=== PATIENT | female | born 1970 | race Two or more races ===

== ENCOUNTER 2017-08-25 04:12 | Emergency (ER) | payer MEDICAID ==
[~2017-08-25] VITALS: Ht 157.5 cm; Wt 52.6 kg
[~2017-08-25 04:12] MED LIST: BACTRIM DS TAB1 EAC1 ORAL; IBUPROFEN800 MG ORAL; NITROFURANTOIN100 M2 ORAL; NKM; PEPCID20 MG ORAL; PRILOSEC OTC20 MG ORAL; RANITIDINE HCL150 MG ORAL; ZANTAC150 MG ORAL
[2017-08-25] MEDS ORDERED: Morphine Sulfate 4mg/ml Inj IVP ONE (04:30)
--- NOTE | 2017-08-25 04:32 | Emergency Room Report ---
History of Present Illness General Chief Complaint: Abdominal Pain Source: Patient Present Illness HPI This is a 46 year old female with no past medical history. She presents with epigastric pain. Onset was around 1 AM. It radiated to her back. It was gnawing pain but then intensified in the last hour. She has several episodes of vomiting. No diarrhea. No fever. Never had this problem before. Denies any urinary complaints. Pain is 9 out of 10. Allergies: Coded Allergies: No Known Allergies (Unverified , 03/14/17) Patient History Past Medical History: see triage record, old chart reviewed Past Surgical History: none Pertinent Family History: none Social History: Denies: smoking Last Menstrual Period: august 14 Now: No Immunizations: other Reviewed Nursing Documentation: PMH: Agreed, PSxH: Agreed Nursing Documentation-PMH Hx Gastrointestinal Problems: Yes - ACID REFLUX Review of Systems Eye: Denies: eye pain, blurred vision ENT: Denies: ear pain, nose congestion, throat swelling Respiratory: Denies: cough, shortness of breath Cardiovascular: Denies: chest pain, palpitations Gastrointestinal: Reports: abdominal pain, nausea, vomiting, Denies: diarrhea Musculoskeletal: Denies: back pain, joint pain Skin: Denies: rash Neurological: Denies: headache, numbness Endocrine: Denies: increased thirst, increased urine Hematologic/Lymphatic: Denies: easy bruising All Other Systems: negative except mentioned in HPI Physical Exam Vital Signs Date Time Temp Pulse Resp B/P (MAP) Pulse Ox O2 Delivery O2 Flow Rate FiO2 08/25/17 04:15 98.8 74 18 133/84 99 Room Air 98.8 vitals normal Sp02 EP Interpretation: reviewed, normal General Appearance: well appearing, no apparent distress, alert Head: normocephalic, atraumatic Eyes: bilateral eye PERRL, bilateral eye EOMI ENT: hearing grossly normal, normal pharynx Neck: full range of motion, supple, no meningismus Respiratory: chest non-tender, lungs clear, normal breath sounds Cardiovascular #1: regular rate, rhythm, no murmur Gastrointestinal: normal bowel sounds, no mass, no organomegaly, no bruit, non- distended, tenderness - Epigastric Musculoskeletal: back normal, gait/station normal, normal range of motion Neurologic: alert, oriented x3 Psychiatric: mood/affect normal Skin: warm/dry Medical Decision Making Diagnostic Impression: Primary Impression: Cholelithiasis Qualified Codes: K80.20 - Calculus of gallbladder without cholecystitis without obstruction ER Course Patient presents with abdominal pain and has gallstone and biliary colic. No evidence of an acute abdomen. No evidence of appendicitis. Her pain is resolved now. No evidence of cholecystitis or pancreatitis. Lab Results Impression labs normal CT/MRI/US Diagnostic Results CT/MRI/US Diagnostic Results : Imaging Test Ordered: CT abdomen and pelvis Impression read by radiologist. Large gallstone. Last Vital Signs Date Time Temp Pulse Resp B/P (MAP) Pulse Ox O2 Delivery O2 Flow Rate FiO2 08/25/17 04:15 98.8 74 18 133/84 99 Room Air 98.8 Status: improved Disposition: HOME, SELF-CARE Condition: Stable Scripts Hydrocodone/Acetaminophen 5-325* (HYDROCODONE/ACETAMINOPHEN 5-325*) 1 Each Tablet 1 TAB ORAL Q6H Y for For Pain, #20 TAB 0 Refills Prov: LAZARUS APPIAH M.D. 08/25/17 Additional Instructions: Follow-up with your doctor in a week. You may need referral to see a general surgeon. Return if symptoms worsen. LAZARUS APPIAH M.D. Aug 25, 2017 04:32
[2017-08-25 04:54] LABS: APPEARANCE,URINE CLEAR; BILIRUBIN, URINE NEGATIVE (NEGATIVE); COLOR,URINE PALE YELLOW; GLUCOSE, URINE (UA) NEGATIVE (NEGATIVE); KETONES,URINE NEGATIVE (NEGATIVE); LEUKOCYTE ESTERASE ,URINE NEGATIVE (NEGATIVE); NITRITE,URINE NEGATIVE (NEGATIVE); PH,URINE 5 (4.5-8.0); PROTEIN,URINE NEGATIVE (NEGATIVE); UROBILINOGEN,URINE NORMAL MG/DL (0.0-1.0)
[2017-08-25 04:56] LABS: BASOPHILS % (AUTO) 0.5 % (0.0-2.0); EOSINOPHILS % (AUTO) 1.2 % (0.0-3.0); HEMATOCRIT 42.5 % (37.0-47.0); HEMOGLOBIN 14.6 G/DL (12.0-16.0); LYMPHOCYTES % (AUTO) 17.1 % (20.0-45.0); MEAN CORPUSCULAR VOLUME 87 FL (80-99); NEUTROPHILS % (AUTO) 73.2 % (45.0-75.0); PLATELET COUNT 243 K/UL (150-450); RED BLOOD COUNT 4.86 M/UL (4.20-5.40); RED CELL DISTRIBUTION WIDTH 11.8 % (11.6-14.8); WHITE BLOOD COUNT 9.3 K/UL (4.8-10.8)
[2017-08-25 05:11] LABS: ANION GAP 9 mmol/L (5-15); BLOOD UREA NITROGEN 10 mg/dL (7-18); CARBON DIOXIDE 25 MMOL/L (21-32); CHLORIDE 104 MMOL/L (98-107); CREATININE 0.9 MG/DL (0.55-1.30); POTASSIUM 3.8 MMOL/L (3.5-5.1); SODIUM 138 MMOL/L (136-145)
[2017-08-25 05:15] LABS: ALANINE AMINOTRANSFERASE 30 U/L (12-78); ALBUMIN 3.4 G/DL (3.4-5.0); ALBUMIN/GLOBULIN RATIO 0.9 (1.0-2.7); ALKALINE PHOSPHATASE 73 U/L (46-116); ASPARTATE AMINO TRANSFERASE 13 U/L (15-37); BILIRUBIN,TOTAL 0.4 MG/DL (0.2-1.0)
[2017-08-25] MEDS ORDERED: HYDROCODON-ACE1 EA15 ORAL (05:24)
[2017-08-25 06:20] VITALS: BP 130/80
--- NOTE | 2017-08-25 10:05 | Diagnostic Imaging Report ---
Indication: Abdominal pain and acid reflux since 1:00 AM Technique: Spiral acquisitions obtained through the abdomen and pelvis. No oral contrast utilized, per emergency room physician request No IV contrast utilized, per referring physician request.. Multiplanar reconstructions were generated. Total dose length product 890.38 mGycm. CTDIvol(s) 16.58 mGy. Dose reduction achieved using automated exposure control Comparison: None Findings: The appendix is normal. There are scattered colonic diverticula. No evidence of diverticulitis. No small bowel distention. No free or loculated intraperitoneal air or fluid. Tiny fat-containing umbilical hernia is incidentally noted. Distal esophagus, stomach, duodenum are unremarkable. Lack of IV contrast limits assessment of the solid organs. The the gallbladder contains a gallstone. The liver, bile ducts, pancreas, spleen, adrenals, kidneys are unremarkable. There is an accessory splenule. No retroperitoneal or mesenteric mass or adenopathy. No pelvic mass or adenopathy. The bones are unremarkable. The lung bases demonstrate bilateral groundglass opacities. Impression: Cholelithiasis. Consider sonography for better characterization No acute process otherwise Colonic diverticulosis. No evidence of diverticulitis Bilateral basilar pulmonary parenchymal groundglass opacities, nonspecific, could indicate pulmonary edema, compressive atelectasis, COPD changes, among other possibilities This agrees with the preliminary interpretation provided overnight by [facility] teleradiology service. The CT scanner at [facility] is accredited by the [employer] and the scans are performed using protocols designed to limit radiation exposure to as low as reasonably achievable to attain images of sufficient resolution adequate for diagnostic evaluation.
== END 2017-08-25 06:20 | disposition home or self-care (01) ==
LOC: EMR 04:38
DX: K80.20 Calculus of gallbladder without cholecystitis without obstruction (principal); K57.30 Diverticulosis of large intestine without perforation or abscess without bleeding
CPT/HCPCS: 36415; 74176; 80053; 81003; 81025; 83690; 85025; 96361; 96374; 96375; 99284; J2270; J2405

== ENCOUNTER 2018-06-22 16:11 | Inpatient (IN) | payer MEDICAID ==
[~2018-06-22] VITALS: Ht 157.5 cm; Wt 70.8 kg
[~2018-06-22 16:11] MED LIST changes: +HYDROCODON-ACE1 EA15 ORAL
[2018-06-22] MEDS ORDERED: ZOFRAN4 M1 ORAL (16:19)
--- NOTE | 2018-06-22 16:30 | NUR ---
ED Nurse Note: pt came in from home c/o abdominal pain 03/28. pt has a previous history of GERD. pt did not take anything to alleviate pain. pt has had n/v since monday.
[2018-06-22] MEDS ORDERED: Dicyclomine HCl 10mg/5ml oral soln ORAL ONE (16:45)
[2018-06-22] MEDS ORDERED: Isovue-300 100ml vial INJ PRN (16:45)
[2018-06-22] MEDS ORDERED: Mylanta II UD 30ml ORAL ONE (16:45)
[2018-06-22] MEDS ORDERED: Morphine Sulfate 4mg/ml Inj (IV/IM USE ONLY) IVP ONE ×2 (16:45→19:30)
[2018-06-22] MEDS ORDERED: Lidocaine 2% Visc 15ml soln ORAL ONE (16:45)
[2018-06-22 17:11] LABS: HEMATOCRIT 40.8 % (37.0-47.0); HEMOGLOBIN 13.8 G/DL (12.0-16.0); MEAN CORPUSCULAR VOLUME 90 FL (80-99); PLATELET COUNT 233 K/UL (150-450); RED BLOOD COUNT 4.55 M/UL (4.20-5.40); RED CELL DISTRIBUTION WIDTH 11.7 % (11.6-14.8); WHITE BLOOD COUNT 19.3 K/UL (4.8-10.8)
[2018-06-22 17:17] LABS: ANION GAP 9 mmol/L (5-15); BLOOD UREA NITROGEN 7 mg/dL (7-18); CALCIUM 9.1 MG/DL (8.5-10.1); CARBON DIOXIDE 29 MMOL/L (21-32); CHLORIDE 101 MMOL/L (98-107); CREATININE 0.8 MG/DL (0.55-1.30); POTASSIUM 3.3 MMOL/L (3.5-5.1); SODIUM 139 MMOL/L (136-145)
[2018-06-22 17:30] LABS: ALANINE AMINOTRANSFERASE 837 U/L (12-78); ALBUMIN 3.5 G/DL (3.4-5.0); ALKALINE PHOSPHATASE 127 U/L (46-116); ASPARTATE AMINO TRANSFERASE 265 U/L (15-37); BILIRUBIN,TOTAL 1.1 MG/DL (0.2-1.0)
[2018-06-22 17:32] LABS: BILIRUBIN,DIRECT 0.3 MG/DL (0.0-0.3)
[2018-06-22 18:00] VITALS: BP 154/92
--- NOTE | 2018-06-22 18:01 | NUR ---
ED Nurse Note: Patient reports decreased abdominal pain, 8/10 and it is tolerable at this time.
[2018-06-22] MEDS ORDERED: NEXIUM40 MG ORAL (18:15)
[2018-06-22 18:34] LABS: APPEARANCE,URINE CLEAR; BILIRUBIN, URINE NEGATIVE (NEGATIVE); COLOR,URINE PALE YELLOW; GLUCOSE, URINE (UA) NEGATIVE (NEGATIVE); KETONES,URINE NEGATIVE (NEGATIVE); LEUKOCYTE ESTERASE ,URINE NEGATIVE (NEGATIVE); NITRITE,URINE NEGATIVE (NEGATIVE); PH,URINE 7 (4.5-8.0); PROTEIN,URINE NEGATIVE (NEGATIVE); UROBILINOGEN,URINE NORMAL MG/DL (0.0-1.0)
--- NOTE | 2018-06-22 18:35 | NUR ---
ED Nurse Note: (alan) at bedside [phone]
[2018-06-22 18:51] VITALS: BP 163/84
--- NOTE | 2018-06-22 19:10 | Emergency Room Report ---
History of Present Illness General Chief Complaint: Abdominal Pain Source: Patient Present Illness HPI 47-year-old female presents ED for evaluation. Complaining of abdominal pain 1 day. Pain is epigastric, sharp, 9 out of 10, nonradiating. With nausea and vomiting. Denies any diarrhea. Denies fevers or chills. History of gallstones. History of acid reflux. No other aggravating relieving factors. Denies any other associated symptoms Allergies: Coded Allergies: No Known Allergies (Unverified , 03/14/17) Patient History Past Medical History: GERD Past Surgical History: none Pertinent Family History: none Social History: Denies: smoking, alcohol use, drug use Now: No Immunizations: UTD Reviewed Nursing Documentation: PMH: Agreed; PSxH: Agreed Nursing Documentation-PMH Hx Gastrointestinal Problems: Yes - ACID REFLUX, GERD Review of Systems All Other Systems: negative except mentioned in HPI Physical Exam Vital Signs Date Time Temp Pulse Resp B/P (MAP) Pulse Ox O2 Delivery O2 Flow Rate FiO2 06/22/18 16:15 98.8 80 18 152/69 96 Room Air Sp02 EP Interpretation: reviewed, normal General Appearance: no apparent distress, alert, GCS 15, non-toxic Head: normocephalic, atraumatic Eyes: bilateral eye normal inspection, bilateral eye PERRL ENT: hearing grossly normal, normal pharynx, no angioedema, normal voice Neck: full range of motion, supple/symm/no masses Respiratory: chest non-tender, lungs clear, normal breath sounds, speaking full sentences Cardiovascular #1: regular rate, rhythm, no edema Cardiovascular #2: 2+ carotid (R), 2+ carotid (L), 2+ radial (R), 2+ radial (L) , 2+ dorsalis pedis (R), 2+ dorsalis pedis (L) Gastrointestinal: normal bowel sounds, soft, non-distended, no guarding, no rebound, tenderness Rectal: deferred Genitourinary: normal inspection, no CVA tenderness Musculoskeletal: back normal, gait/station normal, normal range of motion, non- tender Neurologic: alert, oriented x3, responsive, motor strength/tone normal, sensory intact, speech normal Psychiatric: judgement/insight normal, memory normal, mood/affect normal, no suicidal/homicidal ideation Reflexes: 3+ bicep (R), 3+ bicep (L), 3+ tricep (R), 3+ tricep (L), 3+ knee (R) , 3+ knee (L) Skin: normal color, no rash, warm/dry, well hydrated Lymphatic: no adenopathy Medical Decision Making Diagnostic Impression: Primary Impression: Acute gallstone pancreatitis ER Course Hospital Course 47-year-old F presents to ED with epigastric pain Differential diagnoses include: Appendicitis, cholecystitis, small bowel obstruction Clinical course Patient placed on stretcher. redrawer. After initial history and physical I ordered labs, IV fluids, UA, pain medication and CT Labs - leukocytosis noted, Hb/Hct stable. electrolytes ok. LFTs elevated, lipase elevated CT A/P - cholecystitis with pancreatitis Clinically concerning for gallstone pancreatitis Antibiotics given. Case discussed with Dr. Archuleta and he agreed to consult. Case discussed with Dr. Joseph and he agreed to accept the patient to his service for further care and support I feel this is a highly complex case requiring extensive working including EKG/ Rhythm strip, Xray/CT/US, Blood/urine lab work, repeat exams while in ED, and administration of strong opiates/narcotics for pain control, admission to hospital or close patient follow up. Diagnosis - acute gallstone pancreatitis Patient admitted to hospital in serious condition Labs Test 06/22/18 16:47 06/22/18 17:50 White Blood Count 19.3 K/UL (4.8-10.8) Red Blood Count 4.55 M/UL (4.20-5.40) Hemoglobin 13.8 G/DL (12.0-16.0) Hematocrit 40.8 % (37.0-47.0) Mean Corpuscular Volume 90 FL (80-99) Mean Corpuscular Hemoglobin 30.3 PG (27.0-31.0) Mean Corpuscular Hemoglobin Concent 33.8 G/DL (32.0-36.0) Red Cell Distribution Width 11.7 % (11.6-14.8) Platelet Count 233 K/UL (150-450) Mean Platelet Volume 6.5 FL (6.5-10.1) Neutrophils (%) (Auto) % (45.0-75.0) Lymphocytes (%) (Auto) % (20.0-45.0) Monocytes (%) (Auto) % (1.0-10.0) Eosinophils (%) (Auto) % (0.0-3.0) Basophils (%) (Auto) % (0.0-2.0) Differential Total Cells Counted 100 Neutrophils % (Manual) 89 % (45-75) Lymphocytes % (Manual) 3 % (20-45) Monocytes % (Manual) 8 % (1-10) Eosinophils % (Manual) 0 % (0-3) Basophils % (Manual) 0 % (0-2) Band Neutrophils 0 % (0-8) Platelet Estimate Adequate Platelet Morphology Normal Red Blood Cell Morphology Normal Urine Color Pale yellow Urine Appearance Clear Urine pH 7 (4.5-8.0) Urine Specific [place] 1.005 (1.005-1.035) Urine Protein Negative (NEGATIVE) Urine Glucose (UA) Negative (NEGATIVE) Urine Ketones Negative (NEGATIVE) Urine Blood Negative (NEGATIVE) Urine Nitrite Negative (NEGATIVE) Urine Bilirubin Negative (NEGATIVE) Urine Urobilinogen Normal MG/DL (0.0-1.0) Urine Leukocyte Esterase Negative (NEGATIVE) Sodium Level 139 MMOL/L (136-145) Potassium Level 3.3 MMOL/L (3.5-5.1) Chloride Level 101 MMOL/L (98-107) Carbon Dioxide Level 29 MMOL/L (21-32) Anion Gap 9 mmol/L (5-15) Blood Urea Nitrogen 7 mg/dL (7-18) Creatinine 0.8 MG/DL (0.55-1.30) Estimat Glomerular Filtration Rate > 60 mL/min (>60) Glucose Level 130 MG/DL (74-106) Calcium Level 9.1 MG/DL (8.5-10.1) Total Bilirubin 1.1 MG/DL (0.2-1.0) Direct Bilirubin 0.3 MG/DL (0.0-0.3) Aspartate Amino Transf (AST/SGOT) 265 U/L (15-37) Alanine Aminotransferase (ALT/SGPT) 837 U/L (12-78) Alkaline Phosphatase 127 U/L (46-116) Total Protein 7.1 G/DL (6.4-8.2) Albumin 3.5 G/DL (3.4-5.0) Globulin 3.6 g/dL Albumin/Globulin Ratio 1.0 (1.0-2.7) Lipase 957 U/L (73-393) Human Chorionic Gonadotropin, Qual Negative (NEGATIVE) Urine HCG, Qualitative Negative (NEGATIVE) CT/MRI/US Diagnostic Results CT/MRI/US Diagnostic Results : Imaging Test Ordered: CT A/P Impression 1. Cholelithiasis and probably mild gallbladder wall thickening. Early acute cholecystitis can be considered in the proper clinical setting. 2. Mild pancreatitis. Possibly pseudocyst or lesion near the pancreatic head measuring 16 mm. Last Vital Signs Date Time Temp Pulse Resp B/P (MAP) Pulse Ox O2 Delivery O2 Flow Rate FiO2 06/22/18 18:51 80 20 163/84 100 Room Air 06/22/18 18:00 99.2 Status: improved Disposition: ADMITTED INPATIENT Condition: Serious Referrals: NON PHYSICIAN (PCP) Alvarez Aviles MD Jun 22, 2018 19:10
--- NOTE | 2018-06-22 19:20 | NUR ---
HAND-OFF: Report given to PAT Rodriguez.
[2018-06-22] MEDS ORDERED: Piperacillin/Tazobactam 3.375 GM in D5W 110 ML IVPB ONE (19:45)
--- NOTE | 2018-06-22 19:50 | NUR ---
ED Nurse Note: ermd with new order of iv sozyn and carried out
--- NOTE | 2018-06-22 20:00 | NUR ---
ED Nurse Note: pt was admitted in the hospital. tranfered to ms 312. via gurjaelyn with iv flowing @27.5ml/ hour with cardiovascular sonographer. report given to kristen robison
--- NOTE | 2018-06-22 20:00 | NUR ---
NURSE NOTES: Pt transferred to RM 312-2 from ER, received report from Jennifer RN, Left AC 20g IV running Zosyn @27.5ml/hr. Pt awake, alert oriented X 4, bed is now in lowest position, pt able to ambulate with steady gait, call light within reach, belongings list is in chart, no signs of pain or distress at the moment.
--- NOTE | 2018-06-22 20:40 | NUR ---
NURSE NOTES: Called Dr. Joseph and received medication orders and I put the orders in the system.
[2018-06-22] MEDS ORDERED: Acetaminophen 650 MG SUPP RECTAL PRN (21:30)
[2018-06-22] MEDS ORDERED: Mylanta II UD 30ml ORAL PRN (21:30)
[2018-06-22] MEDS ORDERED: Morphine Sulfate 2mg/ml Inj IVP PRN ×2 (21:30)
--- NOTE | 2018-06-22 22:34 | Infectious Diseases Prog Note ---
Assessment/Plan Problems: (1) Acute gallstone pancreatitis Assessment & Plan: due to passing a stone, continue hydration with supportive care , monitor lipase, GI eval, MRCP (2) Abdominal pain Assessment & Plan: due to the above, continue pain management as per primary (3) Nausea & vomiting Assessment & Plan: continue supportive care and nausea meds (4) Cholecystitis, acute Assessment & Plan: continue zosyn empiric covergae , and monitor LFT, cholecystectomy for source control once pancreatitis is better Subjective Allergies: Coded Allergies: No Known Allergies (Unverified , 03/14/17) Objective Vital Signs Last 24 Hour Vital Signs Date Time Temp Pulse Resp B/P (MAP) Pulse Ox O2 Delivery O2 Flow Rate FiO2 06/22/18 20:00 98.0 86 20 127/65 100 Room Air 06/22/18 18:51 80 20 163/84 100 Room Air 06/22/18 18:00 99.2 78 20 154/92 100 Room Air 06/22/18 17:31 99.2 06/22/18 16:30 80 20 Room Air 06/22/18 16:15 98.8 80 18 152/69 96 Room Air Height (Feet): 5 Height (Inches): 2.00 Weight (Pounds): 156 Laboratory Tests Test 06/22/18 16:47 06/22/18 17:50 White Blood Count 19.3 K/UL (4.8-10.8) H Red Blood Count 4.55 M/UL (4.20-5.40) Hemoglobin 13.8 G/DL (12.0-16.0) Hematocrit 40.8 % (37.0-47.0) Mean Corpuscular Volume 90 FL (80-99) Mean Corpuscular Hemoglobin 30.3 PG (27.0-31.0) Mean Corpuscular Hemoglobin Concent 33.8 G/DL (32.0-36.0) Red Cell Distribution Width 11.7 % (11.6-14.8) Platelet Count 233 K/UL (150-450) Mean Platelet Volume 6.5 FL (6.5-10.1) Neutrophils (%) (Auto) % (45.0-75.0) Lymphocytes (%) (Auto) % (20.0-45.0) Monocytes (%) (Auto) % (1.0-10.0) Eosinophils (%) (Auto) % (0.0-3.0) Basophils (%) (Auto) % (0.0-2.0) Differential Total Cells Counted 100 Neutrophils % (Manual) 89 % (45-75) H Lymphocytes % (Manual) 3 % (20-45) L Monocytes % (Manual) 8 % (1-10) Eosinophils % (Manual) 0 % (0-3) Basophils % (Manual) 0 % (0-2) Band Neutrophils 0 % (0-8) Platelet Estimate Adequate Platelet Morphology Normal Red Blood Cell Morphology Normal Urine Color Pale yellow Urine Appearance Clear Urine pH 7 (4.5-8.0) Urine Specific [place] 1.005 (1.005-1.035) Urine Protein Negative (NEGATIVE) Urine Glucose (UA) Negative (NEGATIVE) Urine Ketones Negative (NEGATIVE) Urine Blood Negative (NEGATIVE) Urine Nitrite Negative (NEGATIVE) Urine Bilirubin Negative (NEGATIVE) Urine Urobilinogen Normal MG/DL (0.0-1.0) Urine Leukocyte Esterase Negative (NEGATIVE) Sodium Level 139 MMOL/L (136-145) Potassium Level 3.3 MMOL/L (3.5-5.1) L Chloride Level 101 MMOL/L (98-107) Carbon Dioxide Level 29 MMOL/L (21-32) Anion Gap 9 mmol/L (5-15) Blood Urea Nitrogen 7 mg/dL (7-18) Creatinine 0.8 MG/DL (0.55-1.30) Estimat Glomerular Filtration Rate > 60 mL/min (>60) Glucose Level 130 MG/DL (74-106) H Calcium Level 9.1 MG/DL (8.5-10.1) Total Bilirubin 1.1 MG/DL (0.2-1.0) H Direct Bilirubin 0.3 MG/DL (0.0-0.3) Aspartate Amino Transf (AST/SGOT) 265 U/L (15-37) H Alanine Aminotransferase (ALT/SGPT) 837 U/L (12-78) H Alkaline Phosphatase 127 U/L (46-116) H Total Protein 7.1 G/DL (6.4-8.2) Albumin 3.5 G/DL (3.4-5.0) Globulin 3.6 g/dL Albumin/Globulin Ratio 1.0 (1.0-2.7) Lipase 957 U/L (73-393) H Human Chorionic Gonadotropin, Qual Negative (NEGATIVE) Urine HCG, Qualitative Negative (NEGATIVE) Current Medications Medications (Trade) Dose Ordered Sig/Manuel Route PRN Reason Start Time Stop Time Status Last Admin Dose Admin Acetaminophen (Tylenol) 650 mg Q4H PRN RECTAL fever 06/22/18 21:30 07/22/18 21:29 Acetaminophen/ Hydrocodone Bitart ([place] 5/325) 1 tab Q6H PRN ORAL For Pain 06/22/18 21:45 06/29/18 21:44 UNV Al Hydroxide/Mg Hydroxide (Mylanta II) 30 ml Q6H PRN ORAL dyspepsia 06/22/18 21:30 07/22/18 21:29 Dextrose (Dextrose 50%) 25 ml Q30M PRN IV Hypoglycemia 06/22/18 21:30 07/22/18 21:29 Dextrose (Dextrose 50%) 50 ml Q30M PRN IV Hypoglycemia 06/22/18 21:30 07/22/18 21:29 Diphenhydramine HCl (Benadryl) 25 mg Q6H PRN ORAL Itching/Pruritis 06/22/18 21:30 07/22/18 21:29 Famotidine (Pepcid I.v.) 20 mg Q12HR IVP 06/23/18 09:00 07/23/18 08:59 UNV Famotidine (Pepcid) 20 mg BID ORAL 06/23/18 09:00 07/23/18 08:59 UNV Heparin Sodium (Porcine) (Heparin 5000 units/ml) 5,000 units EVERY 12 HOURS SUBQ 06/22/18 22:30 07/22/18 22:29 Iopamidol (Isovue-300 100ml) 100 ml NOW PRN INJ Radiology Procedure 06/22/18 16:45 Morphine Sulfate (Morphine Sulfate) 1 mg Q4H PRN IVP For Pain 06/22/18 21:30 06/29/18 21:29 Morphine Sulfate (Morphine Sulfate) 2 mg Q4H PRN IVP Moderate Pain (Pain Scale 4-6) 06/22/18 21:30 06/29/18 21:29 Ondansetron HCl (Zofran) 4 mg Q6H PRN IVP Nausea & Vomiting 06/22/18 21:30 07/22/18 21:29 Ondansetron HCl (Zofran) 4 mg Q6H PRN ORAL Nausea & Vomiting 06/22/18 21:45 07/22/18 21:44 UNV Piperacillin Sod/ Tazobactam Sod 3.375 gm/Dextrose 110 ml @ 27.5 mls/hr ONCE ONCE IVPB 06/22/18 19:45 06/22/18 23:44 06/22/18 19:45 Piperacillin Sod/ Tazobactam Sod 3.375 gm/Sodium Chloride 110 ml @ 27.5 mls/hr EVERY 8 HOURS IVPB 06/22/18 22:00 06/27/18 21:59 UNV Sodium Chloride 1,000 ml @ 100 mls/hr Q10H IVLG 06/22/18 22:18 07/22/18 22:17 Ralph Barbour M.D. Jun 22, 2018 22:34
[2018-06-22] MEDS ORDERED: Morphine Sulfate 4mg/ml Inj (IV/IM USE ONLY) IVP PRN ×2 (22:45)
[2018-06-23] VITALS: BP 143/84
[2018-06-23] MEDS: Heparin 5000 units/ml inj SUBQ SCH ×3 (00:27→20:30)
[2018-06-23 04:00] VITALS: BP 135/95
[2018-06-23] MEDS: Piperacillin/Tazobactam 3.375 GM in NS 110 ML IVPB SCH ×3 (04:22→20:29)
[2018-06-23] MEDS: Morphine Sulfate 4mg/ml Inj (IV/IM USE ONLY) IVP PRN ×3 (06:56→20:38)
[2018-06-23 07:50] LABS: HEMATOCRIT 36.2 % (37.0-47.0); HEMOGLOBIN 12.3 G/DL (12.0-16.0); MEAN CORPUSCULAR VOLUME 89 FL (80-99); PLATELET COUNT 214 K/UL (150-450); RED BLOOD COUNT 4.05 M/UL (4.20-5.40); WHITE BLOOD COUNT 19.4 K/UL (4.8-10.8)
[2018-06-23 08:00] VITALS: BP 150/91
--- NOTE | 2018-06-23 08:00 | NUR ---
NURSE NOTES: Received report from Marlen STEWART, pt a/a/o x4 laying in bed with no signs of distress or other issues at this time. IV on the left AC gauge #20 running NS@100ml, NPO except ice chips and meds. pt is able to ambulate around the room with steady gait. call light within reach, bed in lowest position, side rales up x2. family at bedside. I will f/u as needed.
[2018-06-23 08:03] LABS: INR 1.1 (0.9-1.1)
[2018-06-23 08:31] LABS: ALANINE AMINOTRANSFERASE 553 U/L (12-78); ALBUMIN 2.9 G/DL (3.4-5.0); ALBUMIN/GLOBULIN RATIO 0.8 (1.0-2.7); ALKALINE PHOSPHATASE 100 U/L (46-116); AMYLASE 78 U/L (25-115); ANION GAP 8 mmol/L (5-15); ASPARTATE AMINO TRANSFERASE 99 U/L (15-37); BILIRUBIN,TOTAL 1.1 MG/DL (0.2-1.0); BLOOD UREA NITROGEN 9 mg/dL (7-18); CALCIUM 8.1 MG/DL (8.5-10.1); CARBON DIOXIDE 27 MMOL/L (21-32); CHLORIDE 104 MMOL/L (98-107); CREATININE 0.7 MG/DL (0.55-1.30); POTASSIUM 3.2 MMOL/L (3.5-5.1); SODIUM 139 MMOL/L (136-145)
[2018-06-23 08:34] LABS: BILIRUBIN,DIRECT 0.3 MG/DL (0.0-0.3)
--- NOTE | 2018-06-23 09:29 | Consultation ---
History of Present Illness General Date patient seen: Jun 23, 2018 Chief Complaint: Abdominal Pain Present Illness HPI 47 year old female with known history of cholelithiasis presented to ED with complaints of worsening abdominal pain. States first began to have pain 4 days prior to admission. Pain epigastric/RUQ sharp cramping pain with radiation to back. pain associate with nausea and non bloody emesis. as pain did not improve she came to ED for evaluation. In ED noted to have elevation in lft's, lipase, and leukocytosis. surgery called to evaluate for gallstone pancreatitis. patient seen, chart reviewed, patient examined. states currently n/v improved. pain improved with pain meds. Allergies: Coded Allergies: No Known Allergies (Unverified , 03/14/17) Medication History Scheduled Esomeprazole Magnesium (Nexium), 40 MG ORAL DAILY, (Reported) Ranitidine Hcl* (Zantac*), 150 MG ORAL TWICE A DAY Scheduled PRN Hydrocodone/Acetaminophen 5-325* (Hydrocodone/Acetaminophen 5-325*), 1 TAB ORAL Q6H PRN for For Pain Ondansetron (Zofran), 4 MG ORAL Q6H PRN for Nausea & Vomiting, (Reported) Discontinued Medications Famotidine (Pepcid), 20 MG ORAL DAILY Discontinued Reason: discontinued med Ibuprofen* (Motrin*), 800 MG ORAL THREE TIMES A DAY Discontinued Reason: Therapy completed Nitrofurantoin Monohyd/M-Cryst* (Macrobid 100 Mg*), 100 MG ORAL EVERY 12 HOURS Discontinued Reason: Therapy completed No Known Medications* (NKM - No Known Medications*), 0 ., (Reported) Discontinued Reason: Therapy completed Omeprazole Magnesium (Prilosec Otc), 20 MG ORAL DAILY, (Reported) Discontinued Reason: MD discontinued med Trimethoprim/Sulfamethoxazole 160/800* (Bactrim Ds Tablet*), 1 TAB ORAL Q12H Discontinued Reason: Pt stopped taking med Patient History History Provided By: Patient, Medical Record, PMD Healthcare decision maker Resuscitation status Full Code Advanced Directive on File Past Medical/Surgical History Past Medical/Surgical History: (1) Local reaction to insect sting (2) Insect bite (3) Local reaction to insect sting (4) Edema (5) Gastritis (6) Acute gallstone pancreatitis (7) Abdominal pain (8) Nausea & vomiting (9) Cholecystitis, acute Review of Systems Constitutional: Denies: no symptoms, see HPI, chills, sweats, fever, malaise, weakness, other Eye: Denies: no symptoms, see HPI, eye pain, blurred vision, tearing, double vision, nose pain, nose congestion, acuity changes, discharge, other ENT: Denies: no symptoms, see HPI, ear pain, ear discharge, nose pain, nose congestion, throat pain, throat swelling, mouth pain, hearing loss, nasal discharge, other Respiratory: Denies: no symptoms, see HPI, cough, orthopnea, shortness of breath, stridor, wheezing, GALVEZ, sputum, other Cardiovascular: Denies: no symptoms, see HPI, chest pain, edema, palpitations, syncope, PND, other Gastrointestinal: Reports: abdominal pain, nausea, vomiting Genitourinary: Denies: no symptoms, see HPI, discharge, dysuria, frequency, hematuria, pain, retention, incontinence, urgency, vag bleed/dc, other Musculoskeletal: Denies: no symptoms, see HPI, back pain, gout, joint pain, joint swelling, muscle pain, muscle stiffness, other Skin: Denies: no symptoms, see HPI, rash, change in color, change in hair/nails , dryness, lesions, other Psychiatric: Denies: no symptoms, see HPI, prior hx, anxiety, depressed feelings, emotional problems, SI, HI, hallucinations, other Neurological: Denies: no symptoms, see HPI, headache, numbness, paresthesia, seizure, tingling, tremors, focal weakness, syncope, dizziness, other Endocrine: Denies: no symptoms, see HPI, excessive sweating, flushing, intolerance to temperature, increased thirst, increased urine, unexplained weight loss, other Hematologic/Lymphatic: Denies: no symptoms, see HPI, anemia, blood clots, easy bleeding, easy bruising, swollen glands, diathesis, other Physical Exam General Appearance: no apparent distress, alert Lines, tubes and drains: peripheral HEENT: mucous membranes moist Neck: normal inspection Respiratory/Chest: normal breath sounds, no respiratory distress, no accessory muscle use Cardiovascular/Chest: regular rhythm Abdomen: normal bowel sounds, soft, no organomegaly, no mass, distended, tender Extremities: normal inspection, no calf tenderness Skin Exam: warm/dry Neurologic: alert, oriented x 3 Last 24 Hour Vital Signs Date Time Temp Pulse Resp B/P (MAP) Pulse Ox O2 Delivery O2 Flow Rate FiO2 06/23/18 07:26 99.5 06/23/18 04:00 99.5 78 18 135/95 (108) 96 06/23/18 00:00 98.4 84 18 143/84 (103) 97 06/22/18 22:23 Room Air 06/22/18 20:00 98.0 86 20 127/65 100 Room Air 06/22/18 18:51 80 20 163/84 100 Room Air 06/22/18 18:00 99.2 78 20 154/92 100 Room Air 06/22/18 17:31 99.2 06/22/18 16:30 80 20 Room Air 06/22/18 16:15 98.8 80 18 152/69 96 Room Air Intake and Output 06/22/18 06/23/18 19:00 07:00 Intake Total 900 ml 455.0 ml Balance 900 ml 455.0 ml Intake IV Total 900 ml 455.0 ml # Voids 2 3 Laboratory Tests Test 06/22/18 16:47 06/22/18 17:50 06/23/18 07:16 White Blood Count 19.3 K/UL (4.8-10.8) H 19.4 K/UL (4.8-10.8) H Red Blood Count 4.55 M/UL (4.20-5.40) 4.05 M/UL (4.20-5.40) L Hemoglobin 13.8 G/DL (12.0-16.0) 12.3 G/DL (12.0-16.0) Hematocrit 40.8 % (37.0-47.0) 36.2 % (37.0-47.0) L Mean Corpuscular Volume 90 FL (80-99) 89 FL (80-99) Mean Corpuscular Hemoglobin 30.3 PG (27.0-31.0) 30.5 PG (27.0-31.0) Mean Corpuscular Hemoglobin Concent 33.8 G/DL (32.0-36.0) 34.1 G/DL (32.0-36.0) Red Cell Distribution Width 11.7 % (11.6-14.8) 12.0 % (11.6-14.8) Platelet Count 233 K/UL (150-450) 214 K/UL (150-450) Mean Platelet Volume 6.5 FL (6.5-10.1) 6.3 FL (6.5-10.1) L Neutrophils (%) (Auto) % (45.0-75.0) % (45.0-75.0) Lymphocytes (%) (Auto) % (20.0-45.0) % (20.0-45.0) Monocytes (%) (Auto) % (1.0-10.0) % (1.0-10.0) Eosinophils (%) (Auto) % (0.0-3.0) % (0.0-3.0) Basophils (%) (Auto) % (0.0-2.0) % (0.0-2.0) Differential Total Cells Counted 100 Neutrophils % (Manual) 89 % (45-75) H Pending Lymphocytes % (Manual) 3 % (20-45) L Pending Monocytes % (Manual) 8 % (1-10) Eosinophils % (Manual) 0 % (0-3) Basophils % (Manual) 0 % (0-2) Band Neutrophils 0 % (0-8) Platelet Estimate Adequate Pending Platelet Morphology Normal Pending Red Blood Cell Morphology Normal Urine Color Pale yellow Urine Appearance Clear Urine pH 7 (4.5-8.0) Urine Specific [place] 1.005 (1.005-1.035) Urine Protein Negative (NEGATIVE) Urine Glucose (UA) Negative (NEGATIVE) Urine Ketones Negative (NEGATIVE) Urine Blood Negative (NEGATIVE) Urine Nitrite Negative (NEGATIVE) Urine Bilirubin Negative (NEGATIVE) Urine Urobilinogen Normal MG/DL (0.0-1.0) Urine Leukocyte Esterase Negative (NEGATIVE) Sodium Level 139 MMOL/L (136-145) 139 MMOL/L (136-145) Potassium Level 3.3 MMOL/L (3.5-5.1) L 3.2 MMOL/L (3.5-5.1) L Chloride Level 101 MMOL/L (98-107) 104 MMOL/L (98-107) Carbon Dioxide Level 29 MMOL/L (21-32) 27 MMOL/L (21-32) Anion Gap 9 mmol/L (5-15) 8 mmol/L (5-15) Blood Urea Nitrogen 7 mg/dL (7-18) 9 mg/dL (7-18) Creatinine 0.8 MG/DL (0.55-1.30) 0.7 MG/DL (0.55-1.30) Estimat Glomerular Filtration Rate > 60 mL/min (>60) > 60 mL/min (>60) Glucose Level 130 MG/DL (74-106) H 133 MG/DL (74-106) H Calcium Level 9.1 MG/DL (8.5-10.1) 8.1 MG/DL (8.5-10.1) L Total Bilirubin 1.1 MG/DL (0.2-1.0) H 1.1 MG/DL (0.2-1.0) H Direct Bilirubin 0.3 MG/DL (0.0-0.3) 0.3 MG/DL (0.0-0.3) Aspartate Amino Transf (AST/SGOT) 265 U/L (15-37) H 99 U/L (15-37) H Alanine Aminotransferase (ALT/SGPT) 837 U/L (12-78) H 553 U/L (12-78) H Alkaline Phosphatase 127 U/L (46-116) H 100 U/L (46-116) Total Protein 7.1 G/DL (6.4-8.2) 6.4 G/DL (6.4-8.2) Albumin 3.5 G/DL (3.4-5.0) 2.9 G/DL (3.4-5.0) L Globulin 3.6 g/dL 3.5 g/dL Albumin/Globulin Ratio 1.0 (1.0-2.7) 0.8 (1.0-2.7) L Lipase 957 U/L (73-393) H 232 U/L (73-393) Human Chorionic Gonadotropin, Qual Negative (NEGATIVE) Urine HCG, Qualitative Negative (NEGATIVE) Prothrombin Time 11.4 SEC (9.30-11.50) Prothromb Time International Ratio 1.1 (0.9-1.1) Activated Partial Thromboplast Time 29 SEC (23-33) Amylase Level 78 U/L (25-115) Height (Feet): 5 Height (Inches): 2.00 Weight (Pounds): 156 Medications Current Medications Medications (Trade) Dose Ordered Sig/Manuel Route PRN Reason Start Time Stop Time Status Last Admin Dose Admin Acetaminophen (Tylenol) 650 mg Q4H PRN RECTAL fever 06/22/18 21:30 07/22/18 21:29 Acetaminophen/ Hydrocodone Bitart ([place] 5/325) 1 tab Q6H PRN ORAL For Pain 06/22/18 21:45 06/29/18 21:44 Al Hydroxide/Mg Hydroxide (Mylanta II) 30 ml Q6H PRN ORAL dyspepsia 06/22/18 21:30 07/22/18 21:29 Dextrose (Dextrose 50%) 25 ml Q30M PRN IV Hypoglycemia 06/22/18 21:30 07/22/18 21:29 Dextrose (Dextrose 50%) 50 ml Q30M PRN IV Hypoglycemia 06/22/18 21:30 07/22/18 21:29 Diphenhydramine HCl (Benadryl) 25 mg Q6H PRN ORAL Itching/Pruritis 06/22/18 21:30 07/22/18 21:29 Famotidine (Pepcid I.v.) 20 mg Q12HR IVP 06/23/18 09:00 07/23/18 08:59 06/23/18 08:57 Heparin Sodium (Porcine) (Heparin 5000 units/ml) 5,000 units EVERY 12 HOURS SUBQ 06/22/18 22:30 07/22/18 22:29 06/23/18 08:57 Iopamidol (Isovue-300 100ml) 100 ml NOW PRN INJ Radiology Procedure 06/22/18 16:45 Morphine Sulfate (Morphine Sulfate) 2 mg Q4H PRN IVP Severe Pain (Pain Scale 7-10) 06/22/18 23:45 06/29/18 22:44 06/23/18 06:56 Ondansetron HCl (Zofran) 4 mg Q6H PRN IVP Nausea & Vomiting 06/22/18 21:30 07/22/18 21:29 Piperacillin Sod/ Tazobactam Sod 3.375 gm/Sodium Chloride 110 ml @ 27.5 mls/hr Q8H IVPB 06/23/18 04:00 06/30/18 03:59 06/23/18 04:22 Sodium Chloride 1,000 ml @ 100 mls/hr Q10H IVLG 06/22/18 22:18 07/22/18 22:17 06/23/18 00:08 Assessment/Plan Problem List: (1) Acute gallstone pancreatitis Assessment & Plan: acute gallstone pancreatitis. afebrile, HD Stable leukocytosis LFT's improved lipase improved CT noted NPO IV fluids IV Abx Ultrasound abd trend labs will follow with recs thank you ICD Codes: K85.10 - Biliary acute pancreatitis without necrosis or infection SNOMED: 926050564 Des Archuleta Jun 23, 2018 09:29
--- NOTE | 2018-06-23 10:35 | General Progress Note ---
Assessment/Plan Problem List: (1) Nausea & vomiting ICD Codes: R11.2 - Nausea with vomiting, unspecified SNOMED: 99255652 (2) Acute gallstone pancreatitis ICD Codes: K85.10 - Biliary acute pancreatitis without necrosis or infection SNOMED: 374155016 Assessment/Plan improving labs start clears fu surg recs fu labs ivf pain control Subjective ROS Limited/Unobtainable: Yes Allergies: Coded Allergies: No Known Allergies (Unverified , 03/14/17) Objective Last 24 Hour Vital Signs Date Time Temp Pulse Resp B/P (MAP) Pulse Ox O2 Delivery O2 Flow Rate FiO2 06/23/18 07:26 99.5 06/23/18 04:00 99.5 78 18 135/95 (108) 96 06/23/18 00:00 98.4 84 18 143/84 (103) 97 06/22/18 22:23 Room Air 06/22/18 20:00 98.0 86 20 127/65 100 Room Air 06/22/18 18:51 80 20 163/84 100 Room Air 06/22/18 18:00 99.2 78 20 154/92 100 Room Air 06/22/18 17:31 99.2 06/22/18 16:30 80 20 Room Air 06/22/18 16:15 98.8 80 18 152/69 96 Room Air Intake and Output 06/22/18 06/23/18 19:00 07:00 Intake Total 900 ml 455.0 ml Balance 900 ml 455.0 ml Intake IV Total 900 ml 455.0 ml # Voids 2 3 Laboratory Tests 06/22/18 16:47: White Blood Count 19.3H, Red Blood Count 4.55, Hemoglobin 13.8, Hematocrit 40.8 , Mean Corpuscular Volume 90, Mean Corpuscular Hemoglobin 30.3, Mean Corpuscular Hemoglobin Concent 33.8, Red Cell Distribution Width 11.7, Platelet Count 233, Mean Platelet Volume 6.5, Neutrophils (%) (Auto) , Lymphocytes (%) ( Auto) , Monocytes (%) (Auto) , Eosinophils (%) (Auto) , Basophils (%) (Auto) , Differential Total Cells Counted 100, Neutrophils % (Manual) 89H, Lymphocytes % (Manual) 3L, Monocytes % (Manual) 8, Eosinophils % (Manual) 0, Basophils % ( Manual) 0, Band Neutrophils 0, Platelet Estimate Adequate, Platelet Morphology Normal, Red Blood Cell Morphology Normal, Urine Color Pale yellow, Urine Appearance Clear, Urine pH 7, Urine Specific [place] 1.005, Urine Protein Negative, Urine Glucose (UA) Negative, Urine Ketones Negative, Urine Blood Negative, Urine Nitrite Negative, Urine Bilirubin Negative, Urine Urobilinogen Normal, Urine Leukocyte Esterase Negative, Sodium Level 139, Potassium Level 3.3L, Chloride Level 101, Carbon Dioxide Level 29, Anion Gap 9, Blood Urea Nitrogen 7, Creatinine 0.8, Estimat Glomerular Filtration Rate > 60, Glucose Level 130H, Calcium Level 9.1, Total Bilirubin 1.1H, Direct Bilirubin 0.3, Aspartate Amino Transf (AST/SGOT) 265H, Alanine Aminotransferase (ALT/SGPT) 837H , Alkaline Phosphatase 127H, Total Protein 7.1, Albumin 3.5, Globulin 3.6, Albumin/Globulin Ratio 1.0, Lipase 957H, Human Chorionic Gonadotropin, Qual Negative 06/22/18 17:50: Urine HCG, Qualitative Negative 06/23/18 07:16: White Blood Count 19.4H, Red Blood Count 4.05L, Hemoglobin 12.3, Hematocrit 36.2L, Mean Corpuscular Volume 89, Mean Corpuscular Hemoglobin 30.5, Mean Corpuscular Hemoglobin Concent 34.1, Red Cell Distribution Width 12.0, Platelet Count 214, Mean Platelet Volume 6.3L, Neutrophils (%) (Auto) , Lymphocytes (%) ( Auto) , Monocytes (%) (Auto) , Eosinophils (%) (Auto) , Basophils (%) (Auto) , Differential Total Cells Counted 100, Neutrophils % (Manual) 90H, Lymphocytes % (Manual) 6L, Monocytes % (Manual) 4, Eosinophils % (Manual) 0, Basophils % ( Manual) 0, Band Neutrophils 0, Platelet Estimate Adequate, Platelet Morphology Normal, Red Blood Cell Morphology Normal, Sodium Level 139, Potassium Level 3.2L , Chloride Level 104, Carbon Dioxide Level 27, Anion Gap 8, Blood Urea Nitrogen 9, Creatinine 0.7, Estimat Glomerular Filtration Rate > 60, Glucose Level 133H, Calcium Level 8.1L, Total Bilirubin 1.1H, Direct Bilirubin 0.3, Aspartate Amino Transf (AST/SGOT) 99H, Alanine Aminotransferase (ALT/SGPT) 553H, Alkaline Phosphatase 100, Total Protein 6.4, Albumin 2.9L, Globulin 3.5, Albumin/ Globulin Ratio 0.8L, Lipase 232, Prothrombin Time 11.4, Prothromb Time International Ratio 1.1, Activated Partial Thromboplast Time 29, Amylase Level 78 Height (Feet): 5 Height (Inches): 2.00 Weight (Pounds): 156 General Appearance: alert EENT: normal ENT inspection Neck: supple Cardiovascular: normal rate Respiratory/Chest: lungs clear Abdomen: soft, decreased bowel sounds, tender Extremities: non-tender Bayron Blanco MD Jun 23, 2018 10:35
--- NOTE | 2018-06-23 11:14 | History & Physical ---
History and Physical History & Physicial seen and examined. Full Dictation completed Palomo Joseph MD Jun 23, 2018 11:14
--- NOTE | 2018-06-23 11:15 | General Progress Note ---
Assessment/Plan Assessment/Plan Full Dictation in progress Subjective Allergies: Coded Allergies: No Known Allergies (Unverified , 03/14/17) Objective Last 24 Hour Vital Signs Date Time Temp Pulse Resp B/P (MAP) Pulse Ox O2 Delivery O2 Flow Rate FiO2 06/23/18 09:00 Room Air 06/23/18 08:00 99.4 77 18 150/91 (110) 96 06/23/18 07:26 99.5 06/23/18 04:00 99.5 78 18 135/95 (108) 96 06/23/18 00:00 98.4 84 18 143/84 (103) 97 06/22/18 22:23 Room Air 06/22/18 20:00 98.0 86 20 127/65 100 Room Air 06/22/18 18:51 80 20 163/84 100 Room Air 06/22/18 18:00 99.2 78 20 154/92 100 Room Air 06/22/18 17:31 99.2 06/22/18 16:30 80 20 Room Air 06/22/18 16:15 98.8 80 18 152/69 96 Room Air Intake and Output 06/22/18 06/23/18 19:00 07:00 Intake Total 900 ml 455.0 ml Balance 900 ml 455.0 ml Intake IV Total 900 ml 455.0 ml # Voids 2 3 Laboratory Tests 06/22/18 16:47: White Blood Count 19.3H, Red Blood Count 4.55, Hemoglobin 13.8, Hematocrit 40.8 , Mean Corpuscular Volume 90, Mean Corpuscular Hemoglobin 30.3, Mean Corpuscular Hemoglobin Concent 33.8, Red Cell Distribution Width 11.7, Platelet Count 233, Mean Platelet Volume 6.5, Neutrophils (%) (Auto) , Lymphocytes (%) ( Auto) , Monocytes (%) (Auto) , Eosinophils (%) (Auto) , Basophils (%) (Auto) , Differential Total Cells Counted 100, Neutrophils % (Manual) 89H, Lymphocytes % (Manual) 3L, Monocytes % (Manual) 8, Eosinophils % (Manual) 0, Basophils % ( Manual) 0, Band Neutrophils 0, Platelet Estimate Adequate, Platelet Morphology Normal, Red Blood Cell Morphology Normal, Urine Color Pale yellow, Urine Appearance Clear, Urine pH 7, Urine Specific [place] 1.005, Urine Protein Negative, Urine Glucose (UA) Negative, Urine Ketones Negative, Urine Blood Negative, Urine Nitrite Negative, Urine Bilirubin Negative, Urine Urobilinogen Normal, Urine Leukocyte Esterase Negative, Sodium Level 139, Potassium Level 3.3L, Chloride Level 101, Carbon Dioxide Level 29, Anion Gap 9, Blood Urea Nitrogen 7, Creatinine 0.8, Estimat Glomerular Filtration Rate > 60, Glucose Level 130H, Calcium Level 9.1, Total Bilirubin 1.1H, Direct Bilirubin 0.3, Aspartate Amino Transf (AST/SGOT) 265H, Alanine Aminotransferase (ALT/SGPT) 837H , Alkaline Phosphatase 127H, Total Protein 7.1, Albumin 3.5, Globulin 3.6, Albumin/Globulin Ratio 1.0, Lipase 957H, Human Chorionic Gonadotropin, Qual Negative 06/22/18 17:50: Urine HCG, Qualitative Negative 06/23/18 07:16: White Blood Count 19.4H, Red Blood Count 4.05L, Hemoglobin 12.3, Hematocrit 36.2L, Mean Corpuscular Volume 89, Mean Corpuscular Hemoglobin 30.5, Mean Corpuscular Hemoglobin Concent 34.1, Red Cell Distribution Width 12.0, Platelet Count 214, Mean Platelet Volume 6.3L, Neutrophils (%) (Auto) , Lymphocytes (%) ( Auto) , Monocytes (%) (Auto) , Eosinophils (%) (Auto) , Basophils (%) (Auto) , Differential Total Cells Counted 100, Neutrophils % (Manual) 90H, Lymphocytes % (Manual) 6L, Monocytes % (Manual) 4, Eosinophils % (Manual) 0, Basophils % ( Manual) 0, Band Neutrophils 0, Platelet Estimate Adequate, Platelet Morphology Normal, Red Blood Cell Morphology Normal, Sodium Level 139, Potassium Level 3.2L , Chloride Level 104, Carbon Dioxide Level 27, Anion Gap 8, Blood Urea Nitrogen 9, Creatinine 0.7, Estimat Glomerular Filtration Rate > 60, Glucose Level 133H, Calcium Level 8.1L, Total Bilirubin 1.1H, Direct Bilirubin 0.3, Aspartate Amino Transf (AST/SGOT) 99H, Alanine Aminotransferase (ALT/SGPT) 553H, Alkaline Phosphatase 100, Total Protein 6.4, Albumin 2.9L, Globulin 3.5, Albumin/ Globulin Ratio 0.8L, Lipase 232, Prothrombin Time 11.4, Prothromb Time International Ratio 1.1, Activated Partial Thromboplast Time 29, Amylase Level 78 Height (Feet): 5 Height (Inches): 2.00 Weight (Pounds): 156 Palomo Joseph MD Jun 23, 2018 11:15
[2018-06-23 12:00] VITALS: BP 146/84
--- NOTE | 2018-06-23 13:13 | NUR ---
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
--- NOTE | 2018-06-23 13:20 | NUR ---
NURSE NOTES: RN called Dr. Aquino to inform of pt' potassium level of: 3.2. RN will carry orders. I will f/u as needed.
--- NOTE | 2018-06-23 14:43 | Infectious Diseases Prog Note ---
Assessment/Plan Problems: (1) Cholecystitis, acute Assessment & Plan: continue zosyn empiric covergae , and monitor LFT, cholecystectomy for source control once pancreatitis is better (2) Acute gallstone pancreatitis Assessment & Plan: due to passing a stone, continue hydration with supportive care , monitor lipase, GI eval, MRCP (3) Nausea & vomiting Assessment & Plan: continue supportive care and nausea meds (4) Abdominal pain Assessment & Plan: due to the above, continue pain management as per primary Subjective Constitutional: Reports: no symptoms HEENT: Reports: no symptoms Respiratory: Reports: no symptoms Breasts: Reports: no symptoms Cardiovascular: Reports: no symptoms Gastrointestinal/Abdominal: Reports: nausea, bloating, other - epigastric pain Genitourinary: Reports: no symptoms Neurologic: Reports: no symptoms Psychiatric: Reports: no symptoms Skin: Reports: no symptoms Endocrine: Reports: no symptoms Hematologic: Reports: no symptoms Musculoskeletal: Reports: no symptoms Allergies: Coded Allergies: No Known Allergies (Unverified , 03/14/17) Objective Vital Signs Last 24 Hour Vital Signs Date Time Temp Pulse Resp B/P (MAP) Pulse Ox O2 Delivery O2 Flow Rate FiO2 06/23/18 09:00 Room Air 06/23/18 08:00 99.4 77 18 150/91 (110) 96 06/23/18 07:26 99.5 06/23/18 04:00 99.5 78 18 135/95 (108) 96 06/23/18 00:00 98.4 84 18 143/84 (103) 97 06/22/18 22:23 Room Air 06/22/18 20:00 98.0 86 20 127/65 100 Room Air 06/22/18 18:51 80 20 163/84 100 Room Air 06/22/18 18:00 99.2 78 20 154/92 100 Room Air 06/22/18 17:31 99.2 06/22/18 16:30 80 20 Room Air 06/22/18 16:15 98.8 80 18 152/69 96 Room Air Height (Feet): 5 Height (Inches): 2.00 Weight (Pounds): 156 General Appearance: WD/WN, no acute distress HEENT: normocephalic, atraumatic, anicteric, mucous membranes moist, PERRL, EOMI, pharynx normal, supple, no JVD Respiratory/Chest: chest wall non-tender, lungs clear, normal breath sounds, no respiratory distress, no accessory muscle use Cardiovascular: normal peripheral pulses, normal rate, regular rhythm, no gallop/murmur, no JVD Abdomen: normal bowel sounds, soft, non tender, no organomegaly, non distended , no mass, no scars Genitourinary: normal external genitalia Extremities: no cyanosis, no clubbing Skin: no rash, no lesions, no ulcers Neurologic/Psychiatric: fancy wire drawer II-XII grossly normal, no motor/sensory deficits, alert, oriented x 3, responsive Lymphatic: no neck adenopathy, no groin adenopathy Musculoskeletal: normal muscle bulk, no effusion Laboratory Tests Test 06/22/18 16:47 06/22/18 17:50 06/23/18 07:16 White Blood Count 19.3 K/UL (4.8-10.8) H 19.4 K/UL (4.8-10.8) H Red Blood Count 4.55 M/UL (4.20-5.40) 4.05 M/UL (4.20-5.40) L Hemoglobin 13.8 G/DL (12.0-16.0) 12.3 G/DL (12.0-16.0) Hematocrit 40.8 % (37.0-47.0) 36.2 % (37.0-47.0) L Mean Corpuscular Volume 90 FL (80-99) 89 FL (80-99) Mean Corpuscular Hemoglobin 30.3 PG (27.0-31.0) 30.5 PG (27.0-31.0) Mean Corpuscular Hemoglobin Concent 33.8 G/DL (32.0-36.0) 34.1 G/DL (32.0-36.0) Red Cell Distribution Width 11.7 % (11.6-14.8) 12.0 % (11.6-14.8) Platelet Count 233 K/UL (150-450) 214 K/UL (150-450) Mean Platelet Volume 6.5 FL (6.5-10.1) 6.3 FL (6.5-10.1) L Neutrophils (%) (Auto) % (45.0-75.0) % (45.0-75.0) Lymphocytes (%) (Auto) % (20.0-45.0) % (20.0-45.0) Monocytes (%) (Auto) % (1.0-10.0) % (1.0-10.0) Eosinophils (%) (Auto) % (0.0-3.0) % (0.0-3.0) Basophils (%) (Auto) % (0.0-2.0) % (0.0-2.0) Differential Total Cells Counted 100 100 Neutrophils % (Manual) 89 % (45-75) H 90 % (45-75) H Lymphocytes % (Manual) 3 % (20-45) L 6 % (20-45) L Monocytes % (Manual) 8 % (1-10) 4 % (1-10) Eosinophils % (Manual) 0 % (0-3) 0 % (0-3) Basophils % (Manual) 0 % (0-2) 0 % (0-2) Band Neutrophils 0 % (0-8) 0 % (0-8) Platelet Estimate Adequate Adequate Platelet Morphology Normal Normal Red Blood Cell Morphology Normal Normal Urine Color Pale yellow Urine Appearance Clear Urine pH 7 (4.5-8.0) Urine Specific [place] 1.005 (1.005-1.035) Urine Protein Negative (NEGATIVE) Urine Glucose (UA) Negative (NEGATIVE) Urine Ketones Negative (NEGATIVE) Urine Blood Negative (NEGATIVE) Urine Nitrite Negative (NEGATIVE) Urine Bilirubin Negative (NEGATIVE) Urine Urobilinogen Normal MG/DL (0.0-1.0) Urine Leukocyte Esterase Negative (NEGATIVE) Sodium Level 139 MMOL/L (136-145) 139 MMOL/L (136-145) Potassium Level 3.3 MMOL/L (3.5-5.1) L 3.2 MMOL/L (3.5-5.1) L Chloride Level 101 MMOL/L (98-107) 104 MMOL/L (98-107) Carbon Dioxide Level 29 MMOL/L (21-32) 27 MMOL/L (21-32) Anion Gap 9 mmol/L (5-15) 8 mmol/L (5-15) Blood Urea Nitrogen 7 mg/dL (7-18) 9 mg/dL (7-18) Creatinine 0.8 MG/DL (0.55-1.30) 0.7 MG/DL (0.55-1.30) Estimat Glomerular Filtration Rate > 60 mL/min (>60) > 60 mL/min (>60) Glucose Level 130 MG/DL (74-106) H 133 MG/DL (74-106) H Calcium Level 9.1 MG/DL (8.5-10.1) 8.1 MG/DL (8.5-10.1) L Total Bilirubin 1.1 MG/DL (0.2-1.0) H 1.1 MG/DL (0.2-1.0) H Direct Bilirubin 0.3 MG/DL (0.0-0.3) 0.3 MG/DL (0.0-0.3) Aspartate Amino Transf (AST/SGOT) 265 U/L (15-37) H 99 U/L (15-37) H Alanine Aminotransferase (ALT/SGPT) 837 U/L (12-78) H 553 U/L (12-78) H Alkaline Phosphatase 127 U/L (46-116) H 100 U/L (46-116) Total Protein 7.1 G/DL (6.4-8.2) 6.4 G/DL (6.4-8.2) Albumin 3.5 G/DL (3.4-5.0) 2.9 G/DL (3.4-5.0) L Globulin 3.6 g/dL 3.5 g/dL Albumin/Globulin Ratio 1.0 (1.0-2.7) 0.8 (1.0-2.7) L Lipase 957 U/L (73-393) H 232 U/L (73-393) Human Chorionic Gonadotropin, Qual Negative (NEGATIVE) Urine HCG, Qualitative Negative (NEGATIVE) Prothrombin Time 11.4 SEC (9.30-11.50) Prothromb Time International Ratio 1.1 (0.9-1.1) Activated Partial Thromboplast Time 29 SEC (23-33) Amylase Level 78 U/L (25-115) Current Medications Medications (Trade) Dose Ordered Sig/Manuel Route PRN Reason Start Time Stop Time Status Last Admin Dose Admin Acetaminophen (Tylenol) 650 mg Q4H PRN RECTAL fever 06/22/18 21:30 07/22/18 21:29 Acetaminophen/ Hydrocodone Bitart ([place] 5/325) 1 tab Q6H PRN ORAL For Pain 06/22/18 21:45 06/29/18 21:44 Al Hydroxide/Mg Hydroxide (Mylanta II) 30 ml Q6H PRN ORAL dyspepsia 06/22/18 21:30 07/22/18 21:29 Dextrose (Dextrose 50%) 25 ml Q30M PRN IV Hypoglycemia 06/22/18 21:30 07/22/18 21:29 Dextrose (Dextrose 50%) 50 ml Q30M PRN IV Hypoglycemia 06/22/18 21:30 07/22/18 21:29 Diphenhydramine HCl (Benadryl) 25 mg Q6H PRN ORAL Itching/Pruritis 06/22/18 21:30 07/22/18 21:29 Famotidine (Pepcid I.v.) 20 mg Q12HR IVP 06/23/18 09:00 07/23/18 08:59 06/23/18 08:57 Heparin Sodium (Porcine) (Heparin 5000 units/ml) 5,000 units EVERY 12 HOURS SUBQ 06/22/18 22:30 07/22/18 22:29 06/23/18 08:57 Iopamidol (Isovue-300 100ml) 100 ml NOW PRN INJ Radiology Procedure 06/22/18 16:45 Morphine Sulfate (Morphine Sulfate) 2 mg Q4H PRN IVP Severe Pain (Pain Scale 7-10) 06/22/18 23:45 06/29/18 22:44 06/23/18 13:49 Ondansetron HCl (Zofran) 4 mg Q6H PRN IVP Nausea & Vomiting 06/22/18 21:30 07/22/18 21:29 Piperacillin Sod/ Tazobactam Sod 3.375 gm/Sodium Chloride 110 ml @ 27.5 mls/hr Q8H IVPB 06/23/18 04:00 06/30/18 03:59 06/23/18 11:54 Potassium Chloride (K-Dur) 40 meq ONCE ORAL 06/23/18 13:30 06/23/18 15:00 06/23/18 13:40 Sodium Chloride 1,000 ml @ 100 mls/hr Q10H IVLG 06/22/18 22:18 07/22/18 22:17 06/23/18 00:08 Ralph Barbour M.D. Jun 23, 2018 14:43
--- NOTE | 2018-06-23 15:51 | Diagnostic Imaging Report ---
EXAM: CT Abdomen and Pelvis With Intravenous Contrast CLINICAL HISTORY: ABD PAIN TECHNIQUE: Axial computed tomography images of the abdomen and pelvis with intravenous contrast. CTDI is 17.05 mGy and DLP is 905 mGy-cm. One or more of the following dose reduction techniques were used: automated exposure control, adjustment of the mA and/or kV according to patient size, use of iterative reconstruction technique. COMPARISON: No relevant prior studies available. FINDINGS: Lung bases: Unremarkable. ABDOMEN: Liver: Fatty liver. Gallbladder and bile ducts: Cholelithiasis and probably mild gallbladder wall thickening. Pancreas: Mild pancreatitis. Possibly pseudocyst or lesion near the pancreatic head measuring 16 mm. Spleen: Unremarkable. Adrenals: Unremarkable. Kidneys and ureters: 1 cm left renal cyst. No hydronephrosis. Stomach and bowel: Colonic diverticula without diverticulitis. Reactive thickening in the distal stomach. PELVIS: Appendix: No findings to suggest acute appendicitis. Bladder: Unremarkable. Reproductive: Unremarkable. ABDOMEN and PELVIS: Intraperitoneal space: Small-moderate fluid in the pelvis. Bones/joints: No acute fracture. Soft tissues: Unremarkable. Vasculature: Unremarkable. No abdominal aortic aneurysm. Lymph nodes: No enlarged lymph nodes. IMPRESSION: 1. Cholelithiasis and probably mild gallbladder wall thickening. Early acute cholecystitis can be considered in the proper clinical setting. 2. Mild pancreatitis. Possibly pseudocyst or lesion near the pancreatic head measuring 16 mm.
[2018-06-23 16:00] VITALS: BP 155/88
[2018-06-23] MEDS: Norco 5mg/325mg tab ORAL PRN (17:13)
--- NOTE | 2018-06-23 17:15 | NUR ---
NURSE NOTES: Unable to scan Dunbar 5/325 mg 1 tablet due to slightly torn barcode. Administered Dunbar 5/325 mg 1 tablet at 1713, see MAR.
--- NOTE | 2018-06-23 18:45 | History and Physical Report ---
DATE OF ADMISSION: 06/22/2018 SOURCE OF INFORMATION: The patient and EMR. HISTORY OF PRESENT ILLNESS: The patient is a 47-year-old female with unremarkable history, who presented with acute onset of pain in the upper abdomen. The patient is complaining of persistent nausea, vomiting, and diarrhea for the last three days. The patient denies any hematemesis or hematuria. The patient denies any swelling or pain in the extremities. No headaches. No fever. No chills. No blurry vision. REVIEW OF SYSTEMS: All 14 elements of review of systems reviewed. Pertinent positives and negatives as above. ALLERGIES: NKDA. PAST SURGICAL HISTORY: Denies. MEDICATIONS: Current hospital medications including but not limited to Zosyn, subcutaneous heparin, Protonix, and morphine 2 mg q.6 hours p.r.n. pain. FAMILY HISTORY: Reviewed and noncontributory. SOCIAL HISTORY: The patient denies history of illicit drug abuse, smoking, or alcohol abuse. PHYSICAL EXAMINATION: VITAL SIGNS: Blood pressure 130/80, temperature 98.4, pulse rate 82, pulse oximetry 100% on room air. HEAD AND NECK: Atraumatic and normocephalic. CHEST: Clear to auscultation. HEART: S1, S2. Regular rate and rhythm. ABDOMEN: Positive for tenderness in the upper abdomen. Negative for rebound tenderness. NEUROLOGIC: Awake, alert, and oriented x3. LABORATORY DATA: Dated June 22, 2018, shows WBC of 19.3, hemoglobin of 13.8, platelets of 233,000. Sodium 139, potassium 3.3, BUN 7, creatinine 0.8. AST 268, ALT 837. Amylase 58, and lipase 957. ASSESSMENT AND PLAN: 1. Acute abdomen. 2. Acute pancreatitis. 3. Acute biliary pancreatitis. 4. Abnormal LFT. 5. Hypokalemia. 6. GI and DVT prophylaxis. PLAN OF CARE: We will start with empiric antibiotic treatment as the possibility of cholangitis cannot be excluded. We will continue with supplementation of potassium. GI and Surgery have been already called and notified. Keep the patient n.p.o. We will optimize medication. Palomo Joseph M.D. DR: CORNEL JOB#: [id number] CC: CHETAN
--- NOTE | 2018-06-23 19:25 | NUR ---
HAND-OFF: Report given to Herlinda STEWART.
--- NOTE | 2018-06-23 19:45 | NUR ---
NURSE NOTES: Pt lying in bed w/family at bedside, bed in lowest position, and call light within reach. Pt A&Ox4, VSS, and in no apparent distress at this time. IV site intact/asymptomatic w/IVF @ 100 ml/hr and skin intact; pt presently has no c/o N/V/pain. Will continue to monitor.
[2018-06-23 20:00] VITALS: BP 154/94
--- NOTE | 2018-06-23 20:45 | Consultation ---
DATE OF CONSULTATION: 06/22/2018 INFECTIOUS DISEASE CONSULTATION CONSULTING PHYSICIAN: Ralph Barbour M.D. REQUESTING PHYSICIAN: Palomo Joseph M.D. REASON FOR CONSULTATION: Acute cholecystitis, recommendation for antibiotics treatment, and the patient with gallstone pancreatitis. HISTORY OF PRESENT ILLNESS: The patient is a 47-year-old female with past medical history of GERD, presented to [facility] Emergency Room with abdominal pain for 24 hours. Pain was mainly localized in the epigastric area, 10/10, deep, dull, aching pain, and sometimes in the right upper quadrant and radiates to her back. Pain was associated with nausea and vomiting, but no diarrhea. She had chills, but no fever. The patient had a history of gallstone and she had pain similar to this before, but this time was so severe that she could not tolerate the pain. The patient is not aware of anything makes her pain worse or better. In the emergency room, she received pain medicine, which improved her pain. The patient had elevated lipase concerning for pancreatitis. She also had elevated liver function test and CT scan showed cholecystitis with pancreatitis. The patient was started on Zosyn empirically by the admitting team and Infectious Disease consultation was requested for antibiotics treatment and further management. REVIEW OF SYSTEMS: A 14-point of systems reviewed were all negative apart from the one I mentioned above in my History and Physical. PAST MEDICAL HISTORY: Significant for gallstone and GERD. PAST SURGICAL HISTORY: Negative. FAMILY HISTORY: Negative. 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 No recent drugs, tobacco, or alcohol. ALLERGIES: No known drug allergy. MEDICATIONS: She is on Zosyn for the rest of her medications, please refer to MAR. LABORATORY AND DIAGNOSTIC DATA: Laboratory showed white count of 19.3, hemoglobin of 13.8, platelet count of 233,000. BUN of 7, creatinine of 0.8. Total bilirubin of 1.1. AST of 265, ALT of 837, lipase of 957. Urinalysis negative for infection. Imaging, CT scan of the abdomen and pelvis showed acute cholecystitis and pancreatitis. PHYSICAL EXAMINATION: VITAL SIGNS: Temperature 99.2, pulse 78, respirations 20, blood pressure 154/92, saturation 100% on room air. GENERAL: Middle-aged female, obese, lying in bed, awake, alert, not in acute distress. HEENT: Normocephalic and atraumatic. Pupils are reactive to light. Moist oral mucosa. No exudate or thrush. NECK: Supple. No lymphadenopathy. CARDIOVASCULAR: Regular rate and rhythm. No murmur or gallop. LUNGS: Clear bilaterally. No wheezing or rhonchi. Diminished breathing sounds at the bases. ABDOMEN: Soft, obese, tender in the epigastrium and with rebound in the right upper quadrant. No ascites. No organomegaly. EXTREMITIES: No edema or cyanosis. ASSESSMENT AND RECOMMENDATION: 1. Acute cholecystitis with elevated liver function tests, complicated with pancreatitis, suspect passing stone from the gallbladder. The patient will benefit from cholecystectomy in the future once her pancreatitis improved. Agree on Zosyn for now to be continued, empiric coverage pending cholecystectomy, monitor culture. 2. Acute gallstone pancreatitis suspect due to the above. Continue hydration and supportive care. Pain management as needed. Monitor lipase. 3. Nausea and vomiting due to the above. Continue supportive care and nausea medicine as needed. 4. Abdominal pain due to the above. Continue pain management as per primary. Thank you for the consult. ID will continue to follow. Ralph Barbour M.D. DR: JULIENNE JOB#: [id number] CC:
[2018-06-24] VITALS (7 sets, daily range): BP systolic 151–176; BP diastolic 85–94
[2018-06-24] MEDS: Norco 5mg/325mg tab ORAL PRN ×2 (00:34→11:34)
[2018-06-24] MEDS: Morphine Sulfate 4mg/ml Inj (IV/IM USE ONLY) IVP PRN ×4 (03:23→20:41)
[2018-06-24] MEDS: Piperacillin/Tazobactam 3.375 GM in NS 110 ML IVPB SCH ×3 (04:11→20:30)
--- NOTE | 2018-06-24 06:47 | General Progress Note ---
Assessment/Plan Problem List: (1) Nausea & vomiting ICD Codes: R11.2 - Nausea with vomiting, unspecified SNOMED: 04137475 (2) Acute gallstone pancreatitis ICD Codes: K85.10 - Biliary acute pancreatitis without necrosis or infection SNOMED: 992950100 Assessment/Plan improving labs on clears fu surg recs fu labs ivf pain control fu abd us Subjective ROS Limited/Unobtainable: Yes Allergies: Coded Allergies: No Known Allergies (Unverified , 03/14/17) Objective Last 24 Hour Vital Signs Date Time Temp Pulse Resp B/P (MAP) Pulse Ox O2 Delivery O2 Flow Rate FiO2 06/24/18 04:30 68 152/91 (111) 06/24/18 04:00 98.4 18 99 06/24/18 00:30 69 157/94 (115) 06/24/18 00:00 99.0 18 98 06/23/18 21:00 Room Air 06/23/18 20:00 99.8 70 16 154/94 (114) 96 06/23/18 16:00 100.7 78 16 155/88 (110) 97 06/23/18 12:00 99.7 85 18 146/84 (104) 96 06/23/18 09:00 Room Air 06/23/18 08:00 99.4 77 18 150/91 (110) 96 06/23/18 07:26 99.5 Intake and Output 06/23/18 06/24/18 19:00 07:00 Intake Total 1120 ml Balance 1120 ml Intake Oral 520 ml IV Total 600 ml # Voids 3 Laboratory Tests 06/23/18 07:16: White Blood Count 19.4H, Red Blood Count 4.05L, Hemoglobin 12.3, Hematocrit 36.2L, Mean Corpuscular Volume 89, Mean Corpuscular Hemoglobin 30.5, Mean Corpuscular Hemoglobin Concent 34.1, Red Cell Distribution Width 12.0, Platelet Count 214, Mean Platelet Volume 6.3L, Neutrophils (%) (Auto) , Lymphocytes (%) ( Auto) , Monocytes (%) (Auto) , Eosinophils (%) (Auto) , Basophils (%) (Auto) , Differential Total Cells Counted 100, Neutrophils % (Manual) 90H, Lymphocytes % (Manual) 6L, Monocytes % (Manual) 4, Eosinophils % (Manual) 0, Basophils % ( Manual) 0, Band Neutrophils 0, Platelet Estimate Adequate, Platelet Morphology Normal, Red Blood Cell Morphology Normal, Prothrombin Time 11.4, Prothromb Time International Ratio 1.1, Activated Partial Thromboplast Time 29, Sodium Level 139, Potassium Level 3.2L, Chloride Level 104, Carbon Dioxide Level 27, Anion Gap 8, Blood Urea Nitrogen 9, Creatinine 0.7, Estimat Glomerular Filtration Rate > 60, Glucose Level 133H, Calcium Level 8.1L, Total Bilirubin 1.1H, Direct Bilirubin 0.3, Aspartate Amino Transf (AST/SGOT) 99H, Alanine Aminotransferase ( ALT/SGPT) 553H, Alkaline Phosphatase 100, Total Protein 6.4, Albumin 2.9L, Globulin 3.5, Albumin/Globulin Ratio 0.8L, Amylase Level 78, Lipase 232 Height (Feet): 5 Height (Inches): 2.00 Weight (Pounds): 156 General Appearance: alert EENT: normal ENT inspection Neck: supple Cardiovascular: normal rate Respiratory/Chest: decreased breath sounds Abdomen: normal bowel sounds, non tender, soft Extremities: non-tender Bayron Blanco MD Jun 24, 2018 06:47
--- NOTE | 2018-06-24 07:30 | NUR ---
HAND-OFF: Report given to PAT Tompkins.HAND-OFF: Report given to [].
--- NOTE | 2018-06-24 08:00 | NUR ---
NURSE NOTES: Received report from Pari STEWART, pt a/a/o x4 with no signs of distress or other issues at this time. IV on the AC gauge #20 running NS@100ml/hr. patient c/o of nausea and pain. RN will medicate as indicated by MD. pt in clear liquid able to tolerated well. pt able to ambulate around the room with steady gait. call light within reach. bed in lowest position, side rales up x2. I will f/u as needed.
[2018-06-24 08:30] LABS: HEMATOCRIT 36.1 % (37.0-47.0); HEMOGLOBIN 12.1 G/DL (12.0-16.0); MEAN CORPUSCULAR VOLUME 90 FL (80-99); PLATELET COUNT 214 K/UL (150-450); RED BLOOD COUNT 4.01 M/UL (4.20-5.40); RED CELL DISTRIBUTION WIDTH 12.1 % (11.6-14.8)
[2018-06-24 08:55] LABS: ALANINE AMINOTRANSFERASE 364 U/L (12-78); ALBUMIN 2.8 G/DL (3.4-5.0); ALBUMIN/GLOBULIN RATIO 0.8 (1.0-2.7); ALKALINE PHOSPHATASE 96 U/L (46-116); AMYLASE 36 U/L (25-115); ANION GAP 6 mmol/L (5-15); ASPARTATE AMINO TRANSFERASE 33 U/L (15-37); CALCIUM 8.2 MG/DL (8.5-10.1); CARBON DIOXIDE 28 MMOL/L (21-32); CHLORIDE 102 MMOL/L (98-107); CREATININE 0.7 MG/DL (0.55-1.30); POTASSIUM 3.3 MMOL/L (3.5-5.1); SODIUM 136 MMOL/L (136-145)
[2018-06-24 09:16] LABS: BLOOD UREA NITROGEN 5 mg/dL (7-18)
[2018-06-24] MEDS: Heparin 5000 units/ml inj SUBQ SCH ×2 (09:48→20:32)
--- NOTE | 2018-06-24 11:44 | General Progress Note ---
Assessment/Plan Assessment/Plan S: I still have pain O: no severe pain , Not tolerating Full PO diet PHYSICAL EXAMINATION: HEAD AND NECK: Atraumatic and normocephalic. CHEST: Clear to auscultation. HEART: S1, S2. Regular rate and rhythm. ABDOMEN: Positive for tenderness in the upper abdomen. Negative for rebound tenderness. NEUROLOGIC: Awake, alert, and oriented x3. LABORATORY DATA: reviewed Meds: reviewed and reconciled in the chart ASSESSMENT AND PLAN: 1. Acute abdomen. 2. Acute pancreatitis. 3. Acute biliary pancreatitis. 4. Abnormal LFT. 5. Hypokalemia. 6. GI and DVT prophylaxis. Plan: Notes from GI reviewed , Will Fu with Sx Subjective Allergies: Coded Allergies: No Known Allergies (Unverified , 03/14/17) Objective Last 24 Hour Vital Signs Date Time Temp Pulse Resp B/P (MAP) Pulse Ox O2 Delivery O2 Flow Rate FiO2 06/24/18 08:00 99.3 69 18 151/88 (109) 97 06/24/18 04:30 68 152/91 (111) 06/24/18 04:00 98.4 18 99 06/24/18 00:30 69 157/94 (115) 06/24/18 00:00 99.0 18 98 06/23/18 21:00 Room Air 06/23/18 20:00 99.8 70 16 154/94 (114) 96 06/23/18 16:00 100.7 78 16 155/88 (110) 97 06/23/18 12:00 99.7 85 18 146/84 (104) 96 Intake and Output 06/23/18 06/24/18 19:00 07:00 Intake Total 1120 ml 240 ml Balance 1120 ml 240 ml Intake Oral 520 ml 240 ml IV Total 600 ml # Voids 3 3 Laboratory Tests 06/24/18 07:33: White Blood Count 18.0H, Red Blood Count 4.01L, Hemoglobin 12.1, Hematocrit 36.1L, Mean Corpuscular Volume 90, Mean Corpuscular Hemoglobin 30.2, Mean Corpuscular Hemoglobin Concent 33.6, Red Cell Distribution Width 12.1, Platelet Count 214, Mean Platelet Volume 7.5, Neutrophils (%) (Auto) , Lymphocytes (%) ( Auto) , Monocytes (%) (Auto) , Eosinophils (%) (Auto) , Basophils (%) (Auto) , Differential Total Cells Counted 100, Neutrophils % (Manual) 89H, Lymphocytes % (Manual) 4L, Monocytes % (Manual) 6, Eosinophils % (Manual) 1, Basophils % ( Manual) 0, Band Neutrophils 0, Platelet Estimate Adequate, Platelet Morphology Normal, Red Blood Cell Morphology Normal, Sodium Level 136, Potassium Level 3.3L , Chloride Level 102, Carbon Dioxide Level 28, Anion Gap 6, Blood Urea Nitrogen 5L, Creatinine 0.7, Estimat Glomerular Filtration Rate > 60, Glucose Level 145H , Calcium Level 8.2L, Total Bilirubin 1.0, Aspartate Amino Transf (AST/SGOT) 33 , Alanine Aminotransferase (ALT/SGPT) 364H, Alkaline Phosphatase 96, Total Protein 6.5, Albumin 2.8L, Globulin 3.7, Albumin/Globulin Ratio 0.8L, Amylase Level 36, Lipase 102 Height (Feet): 5 Height (Inches): 2.00 Weight (Pounds): 156 Palomo Joseph MD Jun 24, 2018 11:44
--- NOTE | 2018-06-24 12:14 | NUR ---
CASE MANAGEMENT:REVIEW 06/24/18 SI: ACUTE GALLSTONE PANCREATITIS 99.3 69 18 151/88 97% ON RA WBC+18.0 IS: IV PEPCID Q12 IV ZOSYN Q8HRS IVF@100/HR IV MORPHINE Q4HRS PRN : MED/SURG STATUS
--- NOTE | 2018-06-24 14:00 | NUR ---
NURSE NOTES: MD notified of elevated blood pressure and potassium lab level, see orders. Medication administered as prescribed. Will continue to monitor.
--- NOTE | 2018-06-24 16:59 | Infectious Diseases Prog Note ---
Assessment/Plan Problems: (1) Acute gallstone pancreatitis Assessment & Plan: due to passing a stone, continue hydration with supportive care , monitor lipase, GI eval, MRCP (2) Abdominal pain Assessment & Plan: due to the above, continue pain management as per primary (3) Nausea & vomiting Assessment & Plan: continue supportive care and nausea meds (4) Cholecystitis, acute Assessment & Plan: continue zosyn empiric covergae , and monitor LFT, cholecystectomy for source control once pancreatitis is better Subjective Constitutional: Reports: no symptoms HEENT: Reports: no symptoms Respiratory: Reports: no symptoms Breasts: Reports: no symptoms Cardiovascular: Reports: no symptoms Gastrointestinal/Abdominal: Reports: nausea, bloating Genitourinary: Reports: no symptoms Neurologic: Reports: no symptoms Psychiatric: Reports: no symptoms Skin: Reports: no symptoms Endocrine: Reports: no symptoms Hematologic: Reports: no symptoms Musculoskeletal: Reports: no symptoms Allergies: Coded Allergies: No Known Allergies (Unverified , 03/14/17) Objective Vital Signs Last 24 Hour Vital Signs Date Time Temp Pulse Resp B/P (MAP) Pulse Ox O2 Delivery O2 Flow Rate FiO2 06/24/18 13:46 74 155/91 06/24/18 12:00 97.8 74 18 155/91 (112) 97 06/24/18 09:00 Room Air 06/24/18 08:00 99.3 69 18 151/88 (109) 97 06/24/18 04:30 68 152/91 (111) 06/24/18 04:00 98.4 18 99 06/24/18 00:30 69 157/94 (115) 06/24/18 00:00 99.0 18 98 06/23/18 21:00 Room Air 06/23/18 20:00 99.8 70 16 154/94 (114) 96 Height (Feet): 5 Height (Inches): 2.00 Weight (Pounds): 156 General Appearance: WD/WN, no acute distress HEENT: normocephalic, atraumatic, anicteric, mucous membranes moist, PERRL Respiratory/Chest: chest wall non-tender, lungs clear, normal breath sounds, no respiratory distress, no accessory muscle use Cardiovascular: normal peripheral pulses, normal rate, regular rhythm, no gallop/murmur, no JVD Abdomen: normal bowel sounds, no organomegaly, no mass, no scars, distended, tender Genitourinary: normal external genitalia Extremities: no cyanosis, no clubbing Skin: no rash, no lesions, no ulcers Neurologic/Psychiatric: alert, oriented x 3, responsive Lymphatic: no neck adenopathy, no groin adenopathy Musculoskeletal: normal muscle bulk, no effusion Microbiology Date/Time Source Procedure Growth Status 06/22/18 23:43 Blood Blood Culture - Preliminary NO GROWTH AFTER 24 HOURS Resulted 06/22/18 23:27 Blood Blood Culture - Preliminary NO GROWTH AFTER 24 HOURS Resulted Laboratory Tests Test 06/24/18 07:33 White Blood Count 18.0 K/UL (4.8-10.8) H Red Blood Count 4.01 M/UL (4.20-5.40) L Hemoglobin 12.1 G/DL (12.0-16.0) Hematocrit 36.1 % (37.0-47.0) L Mean Corpuscular Volume 90 FL (80-99) Mean Corpuscular Hemoglobin 30.2 PG (27.0-31.0) Mean Corpuscular Hemoglobin Concent 33.6 G/DL (32.0-36.0) Red Cell Distribution Width 12.1 % (11.6-14.8) Platelet Count 214 K/UL (150-450) Mean Platelet Volume 7.5 FL (6.5-10.1) Neutrophils (%) (Auto) % (45.0-75.0) Lymphocytes (%) (Auto) % (20.0-45.0) Monocytes (%) (Auto) % (1.0-10.0) Eosinophils (%) (Auto) % (0.0-3.0) Basophils (%) (Auto) % (0.0-2.0) Differential Total Cells Counted 100 Neutrophils % (Manual) 89 % (45-75) H Lymphocytes % (Manual) 4 % (20-45) L Monocytes % (Manual) 6 % (1-10) Eosinophils % (Manual) 1 % (0-3) Basophils % (Manual) 0 % (0-2) Band Neutrophils 0 % (0-8) Platelet Estimate Adequate Platelet Morphology Normal Red Blood Cell Morphology Normal Sodium Level 136 MMOL/L (136-145) Potassium Level 3.3 MMOL/L (3.5-5.1) L Chloride Level 102 MMOL/L (98-107) Carbon Dioxide Level 28 MMOL/L (21-32) Anion Gap 6 mmol/L (5-15) Blood Urea Nitrogen 5 mg/dL (7-18) L Creatinine 0.7 MG/DL (0.55-1.30) Estimat Glomerular Filtration Rate > 60 mL/min (>60) Glucose Level 145 MG/DL (74-106) H Calcium Level 8.2 MG/DL (8.5-10.1) L Total Bilirubin 1.0 MG/DL (0.2-1.0) Aspartate Amino Transf (AST/SGOT) 33 U/L (15-37) Alanine Aminotransferase (ALT/SGPT) 364 U/L (12-78) H Alkaline Phosphatase 96 U/L (46-116) Total Protein 6.5 G/DL (6.4-8.2) Albumin 2.8 G/DL (3.4-5.0) L Globulin 3.7 g/dL Albumin/Globulin Ratio 0.8 (1.0-2.7) L Amylase Level 36 U/L (25-115) Lipase 102 U/L (73-393) Current Medications Medications (Trade) Dose Ordered Sig/Manuel Route PRN Reason Start Time Stop Time Status Last Admin Dose Admin Acetaminophen (Tylenol) 650 mg Q4H PRN ORAL Mild Pain/Temp > 100.5 06/23/18 21:30 07/23/18 21:29 Acetaminophen/ Hydrocodone Bitart ([place] 5/325) 1 tab Q6H PRN ORAL For Pain 06/22/18 21:45 06/29/18 21:44 06/24/18 11:34 Al Hydroxide/Mg Hydroxide (Mylanta II) 30 ml Q6H PRN ORAL dyspepsia 06/22/18 21:30 07/22/18 21:29 Amlodipine Besylate (Norvasc) 5 mg DAILY ORAL 06/25/18 09:00 07/25/18 08:59 Dextrose (Dextrose 50%) 25 ml Q30M PRN IV Hypoglycemia 06/22/18 21:30 07/22/18 21:29 Dextrose (Dextrose 50%) 50 ml Q30M PRN IV Hypoglycemia 06/22/18 21:30 07/22/18 21:29 Diphenhydramine HCl (Benadryl) 25 mg Q6H PRN ORAL Itching/Pruritis 06/22/18 21:30 07/22/18 21:29 Famotidine (Pepcid I.v.) 20 mg Q12HR IVP 06/23/18 09:00 07/23/18 08:59 06/24/18 09:42 Heparin Sodium (Porcine) (Heparin 5000 units/ml) 5,000 units EVERY 12 HOURS SUBQ 06/22/18 22:30 07/22/18 22:29 06/24/18 09:48 Iopamidol (Isovue-300 100ml) 100 ml NOW PRN INJ Radiology Procedure 06/22/18 16:45 Morphine Sulfate (Morphine Sulfate) 2 mg Q4H PRN IVP Severe Pain (Pain Scale 7-10) 06/22/18 23:45 06/29/18 22:44 06/24/18 16:26 Ondansetron HCl (Zofran) 4 mg Q6H PRN IVP Nausea & Vomiting 06/22/18 21:30 07/22/18 21:29 06/24/18 13:50 Piperacillin Sod/ Tazobactam Sod 3.375 gm/Sodium Chloride 110 ml @ 27.5 mls/hr Q8H IVPB 06/23/18 04:00 06/30/18 03:59 06/24/18 11:34 Sodium Chloride 1,000 ml @ 100 mls/hr Q10H IVLG 06/22/18 22:18 07/22/18 22:17 06/24/18 04:13 Ralph Barbour M.D. Jun 24, 2018 16:59
--- NOTE | 2018-06-24 19:25 | General Surgery Progress Note ---
General Surgery-Progress Note Subjective Symptoms: improved, pain same Additional Comments leukocytosis. labs noted. still with RUQ pain Objective Last 24 Hour Vital Signs Date Time Temp Pulse Resp B/P (MAP) Pulse Ox O2 Delivery O2 Flow Rate FiO2 06/24/18 16:00 98.4 74 18 164/85 (111) 96 06/24/18 13:46 74 155/91 06/24/18 12:00 97.8 74 18 155/91 (112) 97 06/24/18 09:00 Room Air 06/24/18 08:00 99.3 69 18 151/88 (109) 97 06/24/18 04:30 68 152/91 (111) 06/24/18 04:00 98.4 18 99 06/24/18 00:30 69 157/94 (115) 06/24/18 00:00 99.0 18 98 06/23/18 21:00 Room Air 06/23/18 20:00 99.8 70 16 154/94 (114) 96 I&O Intake and Output 06/23/18 06/24/18 19:00 07:00 Intake Total 1120 ml 340 ml Balance 1120 ml 340 ml Intake Oral 520 ml 240 ml IV Total 600 ml 100 ml # Voids 3 3 Cardiovascular: RSR Respiratory: clear Abdomen: soft, flat, tenderness, present bowel sounds Extremities: no cyanosis Laboratory Tests Test 06/24/18 07:33 White Blood Count 18.0 K/UL (4.8-10.8) H Red Blood Count 4.01 M/UL (4.20-5.40) L Hemoglobin 12.1 G/DL (12.0-16.0) Hematocrit 36.1 % (37.0-47.0) L Mean Corpuscular Volume 90 FL (80-99) Mean Corpuscular Hemoglobin 30.2 PG (27.0-31.0) Mean Corpuscular Hemoglobin Concent 33.6 G/DL (32.0-36.0) Red Cell Distribution Width 12.1 % (11.6-14.8) Platelet Count 214 K/UL (150-450) Mean Platelet Volume 7.5 FL (6.5-10.1) Neutrophils (%) (Auto) % (45.0-75.0) Lymphocytes (%) (Auto) % (20.0-45.0) Monocytes (%) (Auto) % (1.0-10.0) Eosinophils (%) (Auto) % (0.0-3.0) Basophils (%) (Auto) % (0.0-2.0) Differential Total Cells Counted 100 Neutrophils % (Manual) 89 % (45-75) H Lymphocytes % (Manual) 4 % (20-45) L Monocytes % (Manual) 6 % (1-10) Eosinophils % (Manual) 1 % (0-3) Basophils % (Manual) 0 % (0-2) Band Neutrophils 0 % (0-8) Platelet Estimate Adequate Platelet Morphology Normal Red Blood Cell Morphology Normal Sodium Level 136 MMOL/L (136-145) Potassium Level 3.3 MMOL/L (3.5-5.1) L Chloride Level 102 MMOL/L (98-107) Carbon Dioxide Level 28 MMOL/L (21-32) Anion Gap 6 mmol/L (5-15) Blood Urea Nitrogen 5 mg/dL (7-18) L Creatinine 0.7 MG/DL (0.55-1.30) Estimat Glomerular Filtration Rate > 60 mL/min (>60) Glucose Level 145 MG/DL (74-106) H Calcium Level 8.2 MG/DL (8.5-10.1) L Total Bilirubin 1.0 MG/DL (0.2-1.0) Aspartate Amino Transf (AST/SGOT) 33 U/L (15-37) Alanine Aminotransferase (ALT/SGPT) 364 U/L (12-78) H Alkaline Phosphatase 96 U/L (46-116) Total Protein 6.5 G/DL (6.4-8.2) Albumin 2.8 G/DL (3.4-5.0) L Globulin 3.7 g/dL Albumin/Globulin Ratio 0.8 (1.0-2.7) L Amylase Level 36 U/L (25-115) Lipase 102 U/L (73-393) Plan Problems: (1) Acute gallstone pancreatitis Assessment & Plan: acute gallstone pancreatitis. afebrile, HD Stable leukocytosis LFT's improved lipase improved CT noted NPO IV fluids IV Abx Ultrasound abd trend labs will follow with recs thank you Des Archuleta Jun 24, 2018 19:25
--- NOTE | 2018-06-24 19:38 | NUR ---
HAND-OFF: Report given to Marty STEWART, pt in stable condition.
--- NOTE | 2018-06-24 19:45 | NUR ---
NURSE NOTES: Received report from Leda STEWART. Pt in stable condition. No s/s of respiratory distress or discomfort noted. Pt will notify nurse of any changes. Call light within reach, bedside table within reach, bed in low and locked position. Continue to monitor.
[2018-06-25] VITALS: BP 161/96
[2018-06-25 04:00] VITALS: BP 143/87
[2018-06-25] MEDS: Piperacillin/Tazobactam 3.375 GM in NS 110 ML IVPB SCH ×3 (04:15→20:33)
[2018-06-25 06:30] LABS: BASOPHILS % (AUTO) 0.6 % (0.0-2.0); EOSINOPHILS % (AUTO) 0.2 % (0.0-3.0); HEMATOCRIT 35.7 % (37.0-47.0); LYMPHOCYTES % (AUTO) 8.4 % (20.0-45.0); MEAN CORPUSCULAR VOLUME 90 FL (80-99); MONOCYTES % (AUTO) 7.8 % (1.0-10.0); PLATELET COUNT 230 K/UL (150-450); RED BLOOD COUNT 3.97 M/UL (4.20-5.40); RED CELL DISTRIBUTION WIDTH 11.9 % (11.6-14.8); WHITE BLOOD COUNT 16.7 K/UL (4.8-10.8)
[2018-06-25 07:06] LABS: ALANINE AMINOTRANSFERASE 265 U/L (12-78); ALBUMIN 2.7 G/DL (3.4-5.0); ALBUMIN/GLOBULIN RATIO 0.7 (1.0-2.7); ALKALINE PHOSPHATASE 97 U/L (46-116); AMYLASE 32 U/L (25-115); ANION GAP 6 mmol/L (5-15); ASPARTATE AMINO TRANSFERASE 25 U/L (15-37); BLOOD UREA NITROGEN 4 mg/dL (7-18); CALCIUM 8.5 MG/DL (8.5-10.1); CARBON DIOXIDE 29 MMOL/L (21-32); CHLORIDE 103 MMOL/L (98-107); CREATININE 0.7 MG/DL (0.55-1.30); POTASSIUM 3.4 MMOL/L (3.5-5.1); SODIUM 138 MMOL/L (136-145)
--- NOTE | 2018-06-25 07:30 | NUR ---
NURSE NOTES: AWAKE/ALER. PAIN SCALE 2/10. IN NO ACUTE DISTRESS.
[2018-06-25 08:00] VITALS: BP 155/88
--- NOTE | 2018-06-25 08:01 | NUR ---
HAND-OFF: Report given to Saskia Jeff. endorsed plan of care.
[2018-06-25] MEDS: Heparin 5000 units/ml inj SUBQ SCH ×2 (08:33→20:34)
--- NOTE | 2018-06-25 09:50 | NUR ---
NURSE NOTES: K 3.4. DR DOAN CALLED LEFT MESSAGE TO RETURN CALL.
--- NOTE | 2018-06-25 10:55 | GI Progress Note ---
Assessment/Plan Problems: (1) Cholecystitis, acute ICD Codes: K81.0 - Acute cholecystitis SNOMED: 98868431 (2) Acute gallstone pancreatitis ICD Codes: K85.10 - Biliary acute pancreatitis without necrosis or infection SNOMED: 894541204 (3) Abdominal pain ICD Codes: R10.9 - Unspecified abdominal pain SNOMED: 83879247 (4) Nausea & vomiting ICD Codes: R11.2 - Nausea with vomiting, unspecified SNOMED: 82862119 (5) Edema ICD Codes: R60.9 - Edema, unspecified SNOMED: 098676658 Status: progressing Status Narrative Discussed with Dr. Blanco Assessment/Plan AbdominalPelvis CT reviewed >> 1. Cholelithiasis and probably mild gallbladder wall thickening. Early acute cholecystitis can be considered in the proper clinical setting. 2. Mild pancreatitis. Possibly pseudocyst or lesion near the pancreatic head measuring 16 mm. Follow-up abdominal ultrasound improving labs on clears fu surg recs fu labs, [id number] ivf pain control will consider EUS to evaluate the pancreatic pseudocyst versus lesion which can also be done as outpatient The patient was seen and examined at bedside and all new and available data was reviewed in the patients chart. I agree with the above findings, impression and plan. (Patient seen earlier today. Signature stamp does not reflect patient encounter time.). - Bayron Blanco MD Subjective Subjective Her initial abdominal pain has greatly improved Still complains of epigastric discomfort Tolerating clear liquid diet Objective Last 24 Hour Vital Signs Date Time Temp Pulse Resp B/P (MAP) Pulse Ox O2 Delivery O2 Flow Rate FiO2 06/25/18 09:27 Room Air 06/25/18 08:31 79 155/88 06/25/18 08:00 99.4 79 18 155/88 (110) 95 06/25/18 04:00 97.7 76 18 143/87 (105) 97 06/25/18 00:00 99.2 84 16 161/96 (117) 97 06/24/18 21:15 81 154/86 (108) 06/24/18 21:11 99.7 06/24/18 21:00 Room Air 06/24/18 20:00 99.7 83 18 176/93 (120) 96 06/24/18 16:00 98.4 74 18 164/85 (111) 96 06/24/18 13:46 74 155/91 06/24/18 12:00 97.8 74 18 155/91 (112) 97 Intake and Output 06/24/18 06/25/18 19:00 07:00 Intake Total 1880 ml 540 ml Balance 1880 ml 540 ml Intake Oral 1080 ml 240 ml IV Total 800 ml 300 ml # Voids 3 2 Laboratory Tests Test 06/25/18 05:35 White Blood Count 16.7 K/UL (4.8-10.8) H Red Blood Count 3.97 M/UL (4.20-5.40) L Hemoglobin 12.0 G/DL (12.0-16.0) Hematocrit 35.7 % (37.0-47.0) L Mean Corpuscular Volume 90 FL (80-99) Mean Corpuscular Hemoglobin 30.3 PG (27.0-31.0) Mean Corpuscular Hemoglobin Concent 33.7 G/DL (32.0-36.0) Red Cell Distribution Width 11.9 % (11.6-14.8) Platelet Count 230 K/UL (150-450) Mean Platelet Volume 6.8 FL (6.5-10.1) Neutrophils (%) (Auto) 83.0 % (45.0-75.0) H Lymphocytes (%) (Auto) 8.4 % (20.0-45.0) L Monocytes (%) (Auto) 7.8 % (1.0-10.0) Eosinophils (%) (Auto) 0.2 % (0.0-3.0) Basophils (%) (Auto) 0.6 % (0.0-2.0) Sodium Level 138 MMOL/L (136-145) Potassium Level 3.4 MMOL/L (3.5-5.1) L Chloride Level 103 MMOL/L (98-107) Carbon Dioxide Level 29 MMOL/L (21-32) Anion Gap 6 mmol/L (5-15) Blood Urea Nitrogen 4 mg/dL (7-18) L Creatinine 0.7 MG/DL (0.55-1.30) Estimat Glomerular Filtration Rate > 60 mL/min (>60) Glucose Level 114 MG/DL (74-106) H Calcium Level 8.5 MG/DL (8.5-10.1) Total Bilirubin 1.0 MG/DL (0.2-1.0) Aspartate Amino Transf (AST/SGOT) 25 U/L (15-37) Alanine Aminotransferase (ALT/SGPT) 265 U/L (12-78) H Alkaline Phosphatase 97 U/L (46-116) Total Protein 6.6 G/DL (6.4-8.2) Albumin 2.7 G/DL (3.4-5.0) L Globulin 3.9 g/dL Albumin/Globulin Ratio 0.7 (1.0-2.7) L Amylase Level 32 U/L (25-115) Lipase 87 U/L (73-393) Height (Feet): 5 Height (Inches): 2.00 Weight (Pounds): 156 General Appearance: WD/WN, no apparent distress, alert Cardiovascular: normal rate Respiratory/Chest: normal breath sounds, no respiratory distress Abdominal Exam: normal bowel sounds, non tender, soft Extremities: normal range of motion, non-tender Urban Marie NP Jun 25, 2018 10:55
--- NOTE | 2018-06-25 11:28 | NUR ---
CASE MANAGEMENT: REVIEW SI: GALLSTONE . PANCREATITIS T 99.4 HR 79 RR 18 BP 161/96 SAT 97% ROOM AIR WBC 16.7 K 3.4 ALT 265 IS: NORVASC PO QD ZOSYN IV Q8HR NS IVF @100ML/HR CLEAR LIQUID PO DIET MED/SURG STATUS DCP: PATIENT IS FROM HOME
--- NOTE | 2018-06-25 11:52 | General Progress Note ---
Assessment/Plan Assessment/Plan S: I still have pain O: no severe pain , Not tolerating Full PO diet PHYSICAL EXAMINATION: HEAD AND NECK: Atraumatic and normocephalic. CHEST: Clear to auscultation. HEART: S1, S2. Regular rate and rhythm. ABDOMEN: Positive for tenderness in the upper abdomen. Negative for rebound tenderness. NEUROLOGIC: Awake, alert, and oriented x3. LABORATORY DATA: reviewed Meds: reviewed and reconciled in the chart ASSESSMENT AND PLAN: 1. Acute abdomen. 2. Acute pancreatitis. 3. Acute biliary pancreatitis. 4. Abnormal LFT. 5. Hypokalemia. 6. GI and DVT prophylaxis. Plan: Notes from GI reviewed , Will Fu with Sx Subjective Allergies: Coded Allergies: No Known Allergies (Unverified , 03/14/17) Objective Last 24 Hour Vital Signs Date Time Temp Pulse Resp B/P (MAP) Pulse Ox O2 Delivery O2 Flow Rate FiO2 06/25/18 09:27 Room Air 06/25/18 08:31 79 155/88 06/25/18 08:00 99.4 79 18 155/88 (110) 95 06/25/18 04:00 97.7 76 18 143/87 (105) 97 06/25/18 00:00 99.2 84 16 161/96 (117) 97 06/24/18 21:15 81 154/86 (108) 06/24/18 21:11 99.7 06/24/18 21:00 Room Air 06/24/18 20:00 99.7 83 18 176/93 (120) 96 06/24/18 16:00 98.4 74 18 164/85 (111) 96 06/24/18 13:46 74 155/91 06/24/18 12:00 97.8 74 18 155/91 (112) 97 Intake and Output 06/24/18 06/25/18 19:00 07:00 Intake Total 1880 ml 540 ml Balance 1880 ml 540 ml Intake Oral 1080 ml 240 ml IV Total 800 ml 300 ml # Voids 3 2 Laboratory Tests 06/25/18 05:35: White Blood Count 16.7H, Red Blood Count 3.97L, Hemoglobin 12.0, Hematocrit 35.7L, Mean Corpuscular Volume 90, Mean Corpuscular Hemoglobin 30.3, Mean Corpuscular Hemoglobin Concent 33.7, Red Cell Distribution Width 11.9, Platelet Count 230, Mean Platelet Volume 6.8, Neutrophils (%) (Auto) 83.0H, Lymphocytes ( %) (Auto) 8.4L, Monocytes (%) (Auto) 7.8, Eosinophils (%) (Auto) 0.2, Basophils (%) (Auto) 0.6, Sodium Level 138, Potassium Level 3.4L, Chloride Level 103, Carbon Dioxide Level 29, Anion Gap 6, Blood Urea Nitrogen 4L, Creatinine 0.7, Estimat Glomerular Filtration Rate > 60, Glucose Level 114H, Calcium Level 8.5, Total Bilirubin 1.0, Aspartate Amino Transf (AST/SGOT) 25, Alanine Aminotransferase (ALT/SGPT) 265H, Alkaline Phosphatase 97, Total Protein 6.6, Albumin 2.7L, Globulin 3.9, Albumin/Globulin Ratio 0.7L, Amylase Level 32, Lipase 87 Height (Feet): 5 Height (Inches): 2.00 Weight (Pounds): 156 Palomo Joseph MD Jun 25, 2018 11:52
[2018-06-25 12:00] VITALS: BP 139/81
[2018-06-25 16:00] VITALS: BP 127/79
--- NOTE | 2018-06-25 16:05 | Infectious Diseases Prog Note ---
Assessment/Plan Problems: (1) Acute gallstone pancreatitis Assessment & Plan: due to passing a stone, continue hydration with supportive care , monitor lipase, GI eval, MRCP (2) Abdominal pain Assessment & Plan: due to the above, continue pain management as per primary (3) Nausea & vomiting Assessment & Plan: continue supportive care and nausea meds (4) Cholecystitis, acute Assessment & Plan: continue zosyn empiric covergae , and monitor LFT, cholecystectomy for source control once pancreatitis is better (5) Pseudocyst of pancreas Assessment & Plan: recommend EUS for further eval Subjective Constitutional: Reports: no symptoms HEENT: Reports: no symptoms Respiratory: Reports: no symptoms Breasts: Reports: no symptoms Cardiovascular: Reports: no symptoms Gastrointestinal/Abdominal: Reports: bloating Genitourinary: Reports: no symptoms Neurologic: Reports: no symptoms Psychiatric: Reports: no symptoms Skin: Reports: no symptoms Endocrine: Reports: no symptoms Hematologic: Reports: no symptoms Musculoskeletal: Reports: no symptoms Allergies: Coded Allergies: No Known Allergies (Unverified , 03/14/17) Objective Vital Signs Last 24 Hour Vital Signs Date Time Temp Pulse Resp B/P (MAP) Pulse Ox O2 Delivery O2 Flow Rate FiO2 06/25/18 12:00 99.2 84 18 139/81 (100) 06/25/18 09:27 Room Air 06/25/18 08:31 79 155/88 06/25/18 08:00 99.4 79 18 155/88 (110) 95 06/25/18 04:00 97.7 76 18 143/87 (105) 97 06/25/18 00:00 99.2 84 16 161/96 (117) 97 06/24/18 21:15 81 154/86 (108) 06/24/18 21:11 99.7 06/24/18 21:00 Room Air 06/24/18 20:00 99.7 83 18 176/93 (120) 96 Height (Feet): 5 Height (Inches): 2.00 Weight (Pounds): 156 General Appearance: WD/WN, no acute distress HEENT: normocephalic, atraumatic, anicteric, mucous membranes moist, PERRL, EOMI, pharynx normal, supple, no JVD Respiratory/Chest: chest wall non-tender, lungs clear, normal breath sounds, no respiratory distress, no accessory muscle use Breasts: no masses Cardiovascular: normal peripheral pulses, normal rate, regular rhythm, no gallop/murmur, no JVD Abdomen: normal bowel sounds, soft, non tender, no organomegaly, non distended , no mass, no scars Extremities: no cyanosis, no clubbing Skin: no rash, no lesions, no ulcers Neurologic/Psychiatric: alert, oriented x 3, responsive Lymphatic: no neck adenopathy, no groin adenopathy Musculoskeletal: normal muscle bulk, no effusion Microbiology Date/Time Source Procedure Growth Status 06/22/18 23:43 Blood Blood Culture - Preliminary NO GROWTH AFTER 48 HOURS Resulted 06/22/18 23:27 Blood Blood Culture - Preliminary NO GROWTH AFTER 48 HOURS Resulted Laboratory Tests Test 06/25/18 05:35 White Blood Count 16.7 K/UL (4.8-10.8) H Red Blood Count 3.97 M/UL (4.20-5.40) L Hemoglobin 12.0 G/DL (12.0-16.0) Hematocrit 35.7 % (37.0-47.0) L Mean Corpuscular Volume 90 FL (80-99) Mean Corpuscular Hemoglobin 30.3 PG (27.0-31.0) Mean Corpuscular Hemoglobin Concent 33.7 G/DL (32.0-36.0) Red Cell Distribution Width 11.9 % (11.6-14.8) Platelet Count 230 K/UL (150-450) Mean Platelet Volume 6.8 FL (6.5-10.1) Neutrophils (%) (Auto) 83.0 % (45.0-75.0) H Lymphocytes (%) (Auto) 8.4 % (20.0-45.0) L Monocytes (%) (Auto) 7.8 % (1.0-10.0) Eosinophils (%) (Auto) 0.2 % (0.0-3.0) Basophils (%) (Auto) 0.6 % (0.0-2.0) Sodium Level 138 MMOL/L (136-145) Potassium Level 3.4 MMOL/L (3.5-5.1) L Chloride Level 103 MMOL/L (98-107) Carbon Dioxide Level 29 MMOL/L (21-32) Anion Gap 6 mmol/L (5-15) Blood Urea Nitrogen 4 mg/dL (7-18) L Creatinine 0.7 MG/DL (0.55-1.30) Estimat Glomerular Filtration Rate > 60 mL/min (>60) Glucose Level 114 MG/DL (74-106) H Calcium Level 8.5 MG/DL (8.5-10.1) Total Bilirubin 1.0 MG/DL (0.2-1.0) Aspartate Amino Transf (AST/SGOT) 25 U/L (15-37) Alanine Aminotransferase (ALT/SGPT) 265 U/L (12-78) H Alkaline Phosphatase 97 U/L (46-116) Total Protein 6.6 G/DL (6.4-8.2) Albumin 2.7 G/DL (3.4-5.0) L Globulin 3.9 g/dL Albumin/Globulin Ratio 0.7 (1.0-2.7) L Amylase Level 32 U/L (25-115) Lipase 87 U/L (73-393) Current Medications Medications (Trade) Dose Ordered Sig/Manuel Route PRN Reason Start Time Stop Time Status Last Admin Dose Admin Acetaminophen (Tylenol) 650 mg Q4H PRN ORAL Mild Pain/Temp > 100.5 06/23/18 21:30 07/23/18 21:29 Acetaminophen/ Hydrocodone Bitart ([place] 5/325) 1 tab Q6H PRN ORAL For Pain 06/22/18 21:45 06/29/18 21:44 06/24/18 11:34 Al Hydroxide/Mg Hydroxide (Mylanta II) 30 ml Q6H PRN ORAL dyspepsia 06/22/18 21:30 07/22/18 21:29 Amlodipine Besylate (Norvasc) 5 mg DAILY ORAL 06/25/18 09:00 07/25/18 08:59 06/25/18 08:31 Dextrose (Dextrose 50%) 25 ml Q30M PRN IV Hypoglycemia 06/22/18 21:30 07/22/18 21:29 Dextrose (Dextrose 50%) 50 ml Q30M PRN IV Hypoglycemia 06/22/18 21:30 07/22/18 21:29 Diphenhydramine HCl (Benadryl) 25 mg Q6H PRN ORAL Itching/Pruritis 06/22/18 21:30 07/22/18 21:29 Famotidine (Pepcid I.v.) 20 mg Q12HR IVP 06/23/18 09:00 07/23/18 08:59 06/25/18 08:30 Heparin Sodium (Porcine) (Heparin 5000 units/ml) 5,000 units EVERY 12 HOURS SUBQ 06/22/18 22:30 07/22/18 22:29 06/25/18 08:33 Iopamidol (Isovue-300 100ml) 100 ml NOW PRN INJ Radiology Procedure 06/22/18 16:45 Morphine Sulfate (Morphine Sulfate) 2 mg Q4H PRN IVP Severe Pain (Pain Scale 7-10) 06/22/18 23:45 06/29/18 22:44 06/24/18 20:41 Ondansetron HCl (Zofran) 4 mg Q6H PRN IVP Nausea & Vomiting 06/22/18 21:30 07/22/18 21:29 06/25/18 06:51 Piperacillin Sod/ Tazobactam Sod 3.375 gm/Sodium Chloride 110 ml @ 27.5 mls/hr Q8H IVPB 06/23/18 04:00 06/30/18 03:59 06/25/18 11:34 Sodium Chloride 1,000 ml @ 100 mls/hr Q10H IVLG 06/22/18 22:18 07/22/18 22:17 06/25/18 00:32 Ralph Barbour M.D. Jun 25, 2018 16:05
--- NOTE | 2018-06-25 17:38 | General Surgery Progress Note ---
General Surgery-Progress Note Subjective Additional Comments pain improved. no n/v/f/c. tolerating diet. mild epigastric discomfort but minimal. labs improving. Objective Last 24 Hour Vital Signs Date Time Temp Pulse Resp B/P (MAP) Pulse Ox O2 Delivery O2 Flow Rate FiO2 06/25/18 16:00 98.7 79 18 127/79 (95) 97 06/25/18 12:00 99.2 84 18 139/81 (100) 06/25/18 09:27 Room Air 06/25/18 08:31 79 155/88 06/25/18 08:00 99.4 79 18 155/88 (110) 95 06/25/18 04:00 97.7 76 18 143/87 (105) 97 06/25/18 00:00 99.2 84 16 161/96 (117) 97 06/24/18 21:15 81 154/86 (108) 06/24/18 21:11 99.7 06/24/18 21:00 Room Air 06/24/18 20:00 99.7 83 18 176/93 (120) 96 I&O Intake and Output 06/24/18 06/25/18 19:00 07:00 Intake Total 1880 ml 540 ml Balance 1880 ml 540 ml Intake Oral 1080 ml 240 ml IV Total 800 ml 300 ml # Voids 3 2 Drains: none Cardiovascular: RSR Respiratory: clear Abdomen: soft, flat, non-tender, present bowel sounds Extremities: no cyanosis Laboratory Tests Test 06/25/18 05:35 White Blood Count 16.7 K/UL (4.8-10.8) H Red Blood Count 3.97 M/UL (4.20-5.40) L Hemoglobin 12.0 G/DL (12.0-16.0) Hematocrit 35.7 % (37.0-47.0) L Mean Corpuscular Volume 90 FL (80-99) Mean Corpuscular Hemoglobin 30.3 PG (27.0-31.0) Mean Corpuscular Hemoglobin Concent 33.7 G/DL (32.0-36.0) Red Cell Distribution Width 11.9 % (11.6-14.8) Platelet Count 230 K/UL (150-450) Mean Platelet Volume 6.8 FL (6.5-10.1) Neutrophils (%) (Auto) 83.0 % (45.0-75.0) H Lymphocytes (%) (Auto) 8.4 % (20.0-45.0) L Monocytes (%) (Auto) 7.8 % (1.0-10.0) Eosinophils (%) (Auto) 0.2 % (0.0-3.0) Basophils (%) (Auto) 0.6 % (0.0-2.0) Sodium Level 138 MMOL/L (136-145) Potassium Level 3.4 MMOL/L (3.5-5.1) L Chloride Level 103 MMOL/L (98-107) Carbon Dioxide Level 29 MMOL/L (21-32) Anion Gap 6 mmol/L (5-15) Blood Urea Nitrogen 4 mg/dL (7-18) L Creatinine 0.7 MG/DL (0.55-1.30) Estimat Glomerular Filtration Rate > 60 mL/min (>60) Glucose Level 114 MG/DL (74-106) H Calcium Level 8.5 MG/DL (8.5-10.1) Total Bilirubin 1.0 MG/DL (0.2-1.0) Aspartate Amino Transf (AST/SGOT) 25 U/L (15-37) Alanine Aminotransferase (ALT/SGPT) 265 U/L (12-78) H Alkaline Phosphatase 97 U/L (46-116) Total Protein 6.6 G/DL (6.4-8.2) Albumin 2.7 G/DL (3.4-5.0) L Globulin 3.9 g/dL Albumin/Globulin Ratio 0.7 (1.0-2.7) L Amylase Level 32 U/L (25-115) Lipase 87 U/L (73-393) Plan Problems: (1) Acute gallstone pancreatitis Assessment & Plan: acute gallstone pancreatitis. afebrile, HD Stable leukocytosis LFT's improved lipase improved CT noted 1. Cholelithiasis and probably mild gallbladder wall thickening. Early acute cholecystitis can be considered in the proper clinical setting. 2. Mild pancreatitis. Possibly pseudocyst or lesion near the pancreatic head measuring 16 mm. diet as tolerated IV fluids IV Abx trend labs will follow with recs likely pseudocyst. possibly growing given mild epigastric pain. given this would recommend waiting for her to cool down prior to surgery. re-image in 6 weeks to ensure resolution or if intervention needed first before lap aysha. thank you Des Archuleta Jun 25, 2018 17:38
--- NOTE | 2018-06-25 19:25 | NUR ---
NURSE NOTES: RESTING IN BED. IN NO APPARENT DISTRESS
--- NOTE | 2018-06-25 19:36 | NUR ---
HAND-OFF: Report given to luis angel robison.
[2018-06-25 20:00] VITALS: BP 140/89
--- NOTE | 2018-06-25 20:00 | NUR ---
NURSE NOTES: Report received from Baljinder RN. Patient is observed in bed, awake, alert, oriented, and able to make needs known. IV site is asymptomatic, patent, and intact. IVF is running at a prescribed rate. Patient denies pain at this time. Bed is in lowest position with side rails up x2 and brakes are engaged. Encouraged patient to use call light when in need of assistance, patient verbalized understanding.
[2018-06-25] MEDS: Morphine Sulfate 4mg/ml Inj (IV/IM USE ONLY) IVP PRN (20:45)
[2018-06-26] VITALS: BP 134/82
--- NOTE | 2018-06-26 | NUR ---
NURSE NOTES: Patient is asleep but arousable by voice. No s/s of acute distress. Denies pain at this time. VSS. Will continue to monitor.
--- NOTE | 2018-06-26 04:00 | NUR ---
NURSE NOTES: Patient is observed sitting on a chair. Denies pain at this time. VSS. Will continue to monitor.
[2018-06-26 04:22] VITALS: BP 140/79
[2018-06-26] MEDS: Piperacillin/Tazobactam 3.375 GM in NS 110 ML IVPB SCH ×2 (04:23→11:50)
[2018-06-26 07:28] LABS: BASOPHILS % (AUTO) 0.6 % (0.0-2.0); EOSINOPHILS % (AUTO) 0.3 % (0.0-3.0); HEMATOCRIT 34.9 % (37.0-47.0); HEMOGLOBIN 11.8 G/DL (12.0-16.0); LYMPHOCYTES % (AUTO) 8.6 % (20.0-45.0); MEAN CORPUSCULAR VOLUME 89 FL (80-99); MONOCYTES % (AUTO) 9.4 % (1.0-10.0); NEUTROPHILS % (AUTO) 81.1 % (45.0-75.0); PLATELET COUNT 232 K/UL (150-450); RED BLOOD COUNT 3.94 M/UL (4.20-5.40); RED CELL DISTRIBUTION WIDTH 11.8 % (11.6-14.8); WHITE BLOOD COUNT 14.3 K/UL (4.8-10.8)
--- NOTE | 2018-06-26 07:28 | NUR ---
NURSE NOTES: AWAKE/ALERT. PAIN SCALE 1/10. UP IN CHAIR . EATING BREAKFAST. IN NO APPARENT DISTRESS.
[2018-06-26 07:43] LABS: ANION GAP 6 mmol/L (5-15); BLOOD UREA NITROGEN 5 mg/dL (7-18); CALCIUM 8.5 MG/DL (8.5-10.1); CARBON DIOXIDE 28 MMOL/L (21-32); CHLORIDE 104 MMOL/L (98-107); CREATININE 0.7 MG/DL (0.55-1.30); POTASSIUM 3.5 MMOL/L (3.5-5.1); SODIUM 138 MMOL/L (136-145)
--- NOTE | 2018-06-26 07:45 | NUR ---
HAND-OFF: Report given to Baljinder RN. Patient is observed in bed, eating breakfast. Endorsed plan of care.
--- NOTE | 2018-06-26 07:45 | NUR ---
NURSE NOTES: AWAKE/ALERT. NO C/O PAIN . IN NO DISTRESS.
[2018-06-26 08:00] VITALS: BP 116/66
[2018-06-26] MEDS: Heparin 5000 units/ml inj SUBQ SCH (08:22)
--- NOTE | 2018-06-26 11:55 | Diagnostic Imaging Report ---
Indication:Abdominal pain Technique: Grayscale and duplex Doppler imaging of the abdomen performed. Comparison: None Findings: The liver is unremarkable. There are gallstones. Sonographic Ruth's is positive per technologist. There is prominence of the gallbladder wall which appears thickened. The gallbladder is not fully distended. Acute cholecystitis should be considered. The study is technically limited. The demonstrated part of the pancreas, aorta and IVC show no obvious abnormalities. Both kidneys appear grossly unremarkable. The spleen is normal in size. There is no obvious biliary ductal dilatation identified. Doppler evaluation of the main portal vein shows patency. There is no ascites. No hydronephrosis seen. Impression: Possible acute cholecystitis. Technical limitations on this exam. Please refer to the CT report from 06/22/2018
[2018-06-26] MEDS ORDERED: NORVASC5 MG ORAL (11:58)
[2018-06-26 12:00] VITALS: BP 131/82
--- NOTE | 2018-06-26 12:20 | General Surgery Progress Note ---
General Surgery-Progress Note Subjective Symptoms: improved, pain absent, tolerating diet, passing flatus, BM Additional Comments doing better today. improving. on n/v/f/c. tolerating regular diet. ambulatory. labs improved Objective Last 24 Hour Vital Signs Date Time Temp Pulse Resp B/P (MAP) Pulse Ox O2 Delivery O2 Flow Rate FiO2 06/26/18 09:29 Room Air 06/26/18 08:19 85 116/66 06/26/18 08:00 99.4 85 18 116/66 (83) 06/26/18 04:22 99.7 85 18 140/79 (99) 97 06/26/18 00:00 98.9 80 16 134/82 (99) 97 06/25/18 21:00 Room Air 06/25/18 20:00 98.0 84 18 140/89 (106) 97 06/25/18 16:00 98.7 79 18 127/79 (95) 97 I&O Intake and Output 06/25/18 06/26/18 19:00 07:00 Intake Total 2090 ml 1597.5 ml Balance 2090 ml 1597.5 ml Intake Oral 1480 ml 360 ml IV Total 610 ml 1237.5 ml # Voids 3 4 # Bowel Movements 1 Drains: none Cardiovascular: RSR Respiratory: clear Abdomen: soft, flat, non-tender, present bowel sounds Extremities: no cyanosis Laboratory Tests Test 06/26/18 06:30 White Blood Count 14.3 K/UL (4.8-10.8) H Red Blood Count 3.94 M/UL (4.20-5.40) L Hemoglobin 11.8 G/DL (12.0-16.0) L Hematocrit 34.9 % (37.0-47.0) L Mean Corpuscular Volume 89 FL (80-99) Mean Corpuscular Hemoglobin 30.0 PG (27.0-31.0) Mean Corpuscular Hemoglobin Concent 33.9 G/DL (32.0-36.0) Red Cell Distribution Width 11.8 % (11.6-14.8) Platelet Count 232 K/UL (150-450) Mean Platelet Volume 7.0 FL (6.5-10.1) Neutrophils (%) (Auto) 81.1 % (45.0-75.0) H Lymphocytes (%) (Auto) 8.6 % (20.0-45.0) L Monocytes (%) (Auto) 9.4 % (1.0-10.0) Eosinophils (%) (Auto) 0.3 % (0.0-3.0) Basophils (%) (Auto) 0.6 % (0.0-2.0) Sodium Level 138 MMOL/L (136-145) Potassium Level 3.5 MMOL/L (3.5-5.1) Chloride Level 104 MMOL/L (98-107) Carbon Dioxide Level 28 MMOL/L (21-32) Anion Gap 6 mmol/L (5-15) Blood Urea Nitrogen 5 mg/dL (7-18) L Creatinine 0.7 MG/DL (0.55-1.30) Estimat Glomerular Filtration Rate > 60 mL/min (>60) Glucose Level 113 MG/DL (74-106) H Calcium Level 8.5 MG/DL (8.5-10.1) CA 19-9 Antigen Pending Plan Problems: (1) Acute gallstone pancreatitis Assessment & Plan: acute gallstone pancreatitis. afebrile, HD Stable leukocytosis LFT's improved lipase improved CT noted 1. Cholelithiasis and probably mild gallbladder wall thickening. Early acute cholecystitis can be considered in the proper clinical setting. 2. Mild pancreatitis. Possibly pseudocyst or lesion near the pancreatic head measuring 16 mm. US noted diet as tolerated IV Abx - transition to oral for d/c trend labs will follow with recs likely pseudocyst. possibly growing given mild epigastric pain. given this would recommend waiting for her to cool down prior to surgery. re-image in 6 weeks to ensure resolution or if intervention needed first before lap aysha. d/c planning. okay to d/c from surgical standpoint thank you Des Archuleta Jun 26, 2018 12:20
--- NOTE | 2018-06-26 12:41 | GI Progress Note ---
Assessment/Plan Problems: (1) Cholecystitis, acute ICD Codes: K81.0 - Acute cholecystitis SNOMED: 15209307 (2) Acute gallstone pancreatitis ICD Codes: K85.10 - Biliary acute pancreatitis without necrosis or infection SNOMED: 715273344 (3) Abdominal pain ICD Codes: R10.9 - Unspecified abdominal pain SNOMED: 48456091 (4) Nausea & vomiting ICD Codes: R11.2 - Nausea with vomiting, unspecified SNOMED: 14627143 (5) Edema ICD Codes: R60.9 - Edema, unspecified SNOMED: 734510072 Status: stable Status Narrative Discussed with Dr. Blanco Assessment/Plan AbdominalPelvis CT reviewed >> 1. Cholelithiasis and probably mild gallbladder wall thickening. Early acute cholecystitis can be considered in the proper clinical setting. 2. Mild pancreatitis. Possibly pseudocyst or lesion near the pancreatic head measuring 16 mm. Abdominal ultrasound reviewed okay for DC per GI standpoint improving labs Regular diet fu surg recs fu labs, CA19-9 ivf pain control Recommend repeat imaging study of the pancreatic pseudocyst in 1 year. The patient was seen and examined at bedside and all new and available data was reviewed in the patients chart. I agree with the above findings, impression and plan. (Patient seen earlier today. Signature stamp does not reflect patient encounter time.). - Bayron Blanco MD Subjective Subjective Her initial abdominal pain has greatly improved Still complains of epigastric discomfort Tolerating regular diet Objective Last 24 Hour Vital Signs Date Time Temp Pulse Resp B/P (MAP) Pulse Ox O2 Delivery O2 Flow Rate FiO2 06/26/18 12:00 99.9 81 18 131/82 (98) 90 06/26/18 09:29 Room Air 06/26/18 08:19 85 116/66 06/26/18 08:00 99.4 85 18 116/66 (83) 06/26/18 04:22 99.7 85 18 140/79 (99) 97 06/26/18 00:00 98.9 80 16 134/82 (99) 97 06/25/18 21:00 Room Air 06/25/18 20:00 98.0 84 18 140/89 (106) 97 06/25/18 16:00 98.7 79 18 127/79 (95) 97 Intake and Output 06/25/18 06/26/18 19:00 07:00 Intake Total 2090 ml 1597.5 ml Balance 2090 ml 1597.5 ml Intake Oral 1480 ml 360 ml IV Total 610 ml 1237.5 ml # Voids 3 4 # Bowel Movements 1 Laboratory Tests Test 06/26/18 06:30 White Blood Count 14.3 K/UL (4.8-10.8) H Red Blood Count 3.94 M/UL (4.20-5.40) L Hemoglobin 11.8 G/DL (12.0-16.0) L Hematocrit 34.9 % (37.0-47.0) L Mean Corpuscular Volume 89 FL (80-99) Mean Corpuscular Hemoglobin 30.0 PG (27.0-31.0) Mean Corpuscular Hemoglobin Concent 33.9 G/DL (32.0-36.0) Red Cell Distribution Width 11.8 % (11.6-14.8) Platelet Count 232 K/UL (150-450) Mean Platelet Volume 7.0 FL (6.5-10.1) Neutrophils (%) (Auto) 81.1 % (45.0-75.0) H Lymphocytes (%) (Auto) 8.6 % (20.0-45.0) L Monocytes (%) (Auto) 9.4 % (1.0-10.0) Eosinophils (%) (Auto) 0.3 % (0.0-3.0) Basophils (%) (Auto) 0.6 % (0.0-2.0) Sodium Level 138 MMOL/L (136-145) Potassium Level 3.5 MMOL/L (3.5-5.1) Chloride Level 104 MMOL/L (98-107) Carbon Dioxide Level 28 MMOL/L (21-32) Anion Gap 6 mmol/L (5-15) Blood Urea Nitrogen 5 mg/dL (7-18) L Creatinine 0.7 MG/DL (0.55-1.30) Estimat Glomerular Filtration Rate > 60 mL/min (>60) Glucose Level 113 MG/DL (74-106) H Calcium Level 8.5 MG/DL (8.5-10.1) CA 19-9 Antigen Pending Height (Feet): 5 Height (Inches): 2.00 Weight (Pounds): 156 General Appearance: WD/WN, no apparent distress, alert Cardiovascular: normal rate Respiratory/Chest: normal breath sounds, no respiratory distress Abdominal Exam: normal bowel sounds, non tender, soft Extremities: normal range of motion, non-tender Urban Marie NP Jun 26, 2018 12:41
[2018-06-26 16:00] VITALS: BP 124/80
[2018-06-26] MEDS ORDERED: METRONIDAZOLE500 MG ORAL (16:43)
[2018-06-26] MEDS ORDERED: CEFDINIR300 MG PO (16:45)
--- NOTE | 2018-06-26 17:31 | NUR ---
NURSE NOTES: DISCHARGED HOME PER WHEELCHAIR ACCPD BY SON IN STABLE CONDITION. DC INSTRUCTIONS AND RX GIVEN
--- NOTE | 2018-06-26 18:53 | Infectious Diseases Prog Note ---
Assessment/Plan Problems: (1) Acute gallstone pancreatitis Assessment & Plan: due to passing a stone, improved, encourage hydration with supportive care , follow up with GI (2) Cholecystitis, acute Assessment & Plan: improving on zosyn empiric covergae , will switch to oral cefdinir and metronidazole for 7 more days, follow up with surgery for cholecystectomy in the future for source control (3) Pseudocyst of pancreas Assessment & Plan: recommend EUS for further eval in no resolution in 4-6 weeks , follow up with GI Subjective Constitutional: Reports: no symptoms HEENT: Reports: no symptoms Respiratory: Reports: no symptoms Breasts: Reports: no symptoms Cardiovascular: Reports: no symptoms Gastrointestinal/Abdominal: Reports: no symptoms Genitourinary: Reports: no symptoms Neurologic: Reports: no symptoms Psychiatric: Reports: no symptoms Skin: Reports: no symptoms Endocrine: Reports: no symptoms Hematologic: Reports: no symptoms Musculoskeletal: Reports: no symptoms Allergies: Coded Allergies: No Known Allergies (Unverified , 03/14/17) Objective Vital Signs Last 24 Hour Vital Signs Date Time Temp Pulse Resp B/P (MAP) Pulse Ox O2 Delivery O2 Flow Rate FiO2 06/26/18 16:27 99.5 06/26/18 16:00 99.9 87 18 124/80 (95) 98 06/26/18 12:00 99.9 81 18 131/82 (98) 90 06/26/18 09:29 Room Air 06/26/18 08:19 85 116/66 06/26/18 08:00 99.4 85 18 116/66 (83) 06/26/18 04:22 99.7 85 18 140/79 (99) 97 06/26/18 00:00 98.9 80 16 134/82 (99) 97 06/25/18 21:00 Room Air 06/25/18 20:00 98.0 84 18 140/89 (106) 97 Height (Feet): 5 Height (Inches): 2.00 Weight (Pounds): 156 General Appearance: WD/WN, no acute distress HEENT: normocephalic, atraumatic, anicteric, mucous membranes moist, PERRL Respiratory/Chest: chest wall non-tender, lungs clear, normal breath sounds, no respiratory distress, no accessory muscle use Cardiovascular: normal peripheral pulses, normal rate, regular rhythm, no gallop/murmur, no JVD Abdomen: normal bowel sounds, soft, non tender, no organomegaly, non distended , no mass, no scars Genitourinary: normal external genitalia Extremities: no cyanosis, no clubbing Skin: no rash, no lesions, no ulcers Neurologic/Psychiatric: alert, oriented x 3, responsive Lymphatic: no neck adenopathy, no groin adenopathy Musculoskeletal: normal muscle bulk, no effusion Laboratory Tests Test 06/26/18 06:30 White Blood Count 14.3 K/UL (4.8-10.8) H Red Blood Count 3.94 M/UL (4.20-5.40) L Hemoglobin 11.8 G/DL (12.0-16.0) L Hematocrit 34.9 % (37.0-47.0) L Mean Corpuscular Volume 89 FL (80-99) Mean Corpuscular Hemoglobin 30.0 PG (27.0-31.0) Mean Corpuscular Hemoglobin Concent 33.9 G/DL (32.0-36.0) Red Cell Distribution Width 11.8 % (11.6-14.8) Platelet Count 232 K/UL (150-450) Mean Platelet Volume 7.0 FL (6.5-10.1) Neutrophils (%) (Auto) 81.1 % (45.0-75.0) H Lymphocytes (%) (Auto) 8.6 % (20.0-45.0) L Monocytes (%) (Auto) 9.4 % (1.0-10.0) Eosinophils (%) (Auto) 0.3 % (0.0-3.0) Basophils (%) (Auto) 0.6 % (0.0-2.0) Sodium Level 138 MMOL/L (136-145) Potassium Level 3.5 MMOL/L (3.5-5.1) Chloride Level 104 MMOL/L (98-107) Carbon Dioxide Level 28 MMOL/L (21-32) Anion Gap 6 mmol/L (5-15) Blood Urea Nitrogen 5 mg/dL (7-18) L Creatinine 0.7 MG/DL (0.55-1.30) Estimat Glomerular Filtration Rate > 60 mL/min (>60) Glucose Level 113 MG/DL (74-106) H Calcium Level 8.5 MG/DL (8.5-10.1) CA 19-9 Antigen Pending Ralph Barbour M.D. Jun 26, 2018 18:53
--- NOTE | 2018-06-28 09:55 | Discharge Summary ---
Discharge Summary Discharge Summary _ DATE OF ADMISSION: 06/22/2018 DATE OF DISCHARGE: 06/26/2018 DISCHARGED BY: Dr. Joseph REASON FOR ADMISSION: 47 years old female presented to emergency department with acute onset of abdominal pain. Patient reported persistent nausea , vomiting and diarrhea for the last 3 days. Patient denied hematemesis or hematuria. No blood in stool. No pain in extremities. No headache. Patient denied fever and chills. Upon evaluation vital signs were stable. Laboratory workup revealed leukocytosis WBC 19.3 with shift to the left. Potassium 3.3. AST 265, ALT 837, lipase 957. Alkaline phosphatase 127. Total bilirubin 1.1, direct bilirubin 0.3. Urine test was negative. Urinalysis revealed no evidence of UTI. CT of the abdomen and pelvis revealed cholelithiasis and probably mild gallbladder wall thickening. Early acute cholecystitis should be considered. Mild pancreatitis with possible pseudocyst or lesion near the pancreatic head measuring 16 mm.. Patient was admitted for further management. CONSULTANTS: ID specialist Dr. Barbour GI specialist Dr. Blanco surgery Dr. Archuleta [facility] COURSE: Patient admitted to medical surgical floor. Patient was kept n.p.o. and started on IV fluids and empiric antibiotics. Potassium was replaced. GI , ID and surgery consults were requested. Abdominal ultrasound revealed possible acute cholecystitis. Pain management was addressed. CA-19-9 was within normal range. LFT, lipase, amylase and bilirubin were closely monitored. AST down to normal , lipase and amylase down to normal. ALT down to 265. Bilirubin normal 1.0. Patient was slowly started on clear liquid diet and was advanced as tolerated. Surgeon closely reviewed imaging , recommended to repeat imaging in 6 weeks to ensure resolution or if needed laparoscopic cholecystectomy. Surgeon cleared for discharge at this time. GI prophylaxis provided. Potassium remained stable -3.5 prior to discharge. GI specialist recommended to repeat imaging study of the pancreatic pseudocyst in 1 year. Blood cultures were negative. IV antibiotic changed to oral to complete the course upon discharge as per ID specialist recommendation. Leukocytosis trending down. Patient afebrile. Patient stabilized and was ready for discharge home FINAL DIAGNOSES: Acute gallstone pancreatitis Acute cholecystitis Abdominal pain with nausea and vomiting secondary to above Pseudocyst of the pancreas. Hypokalemia DISCHARGE MEDICATIONS: See Medication Reconciliation list. DISCHARGE INSTRUCTIONS: Patient was discharged home . Follow up with primary care provider in one week. I have been assigned to dictate discharge summary for this account. I was not involved in the patient's management. Keysha Marie NP Jun 28, 2018 09:55
== END 2018-06-26 15:25 | disposition home or self-care (01) | DRG 282 ==
LOC: EMR 16:47 → 3E 18:00 → EDBEDREQ 18:30
DX: K85.10 Biliary acute pancreatitis without necrosis or infection (principal); K81.0 Acute cholecystitis; K86.3 Pseudocyst of pancreas; E87.6 Hypokalemia
CPT/HCPCS: 36415; 74177; 76700; 80048; 80053; 81003; 81025; 82150; 82248; 83690; 84703; 85007; 85025; 85610; 85730; 87040; 96361; 96365; 96375; 96376; 99285; J2405; J8499